=== PATIENT | male | born 1935 | race Caucasian/White ===

== ENCOUNTER → 2016-11-21 | Outpatient (CLI) | payer OTHER ==
[~2016-11-21] MED LIST: APIX1TAB PO; ASPI81TA28 PO; ASTN; CARV12.5 PO; FINA5TAB PO; FURO-85 PO; IBUP-1050 PO; LISI-725 PO; NTRGSL/4 UT; ONGLYZA PO; PRAS1TAB6 PO; PRD/1 PO; PRLSR20 PO; SAXA1TAB64 PO; SIMV40TA2 PO; SPIR25TA PO; TAMS0.4C38 PO; TRAM-10 PO
[2016-11-21 12:20] LABS: HEMATOCRIT 39.3 % (42-52); MEAN CELL VOLUME 97.3 fL (80-100); MEAN CORPUSCULAR HEMOGLOBIN 32.9 pg (25-34); MEAN CORPUSCULAR HGB CONC 33.8 g/dl (32-36); MEAN PLATELET VOLUME 11.1 fL (7.4-10.4); PLATELET COUNT 168 K/uL (130-400); RED BLOOD COUNT 4.04 M/uL (4.7-6.1); WHITE BLOOD COUNT 7.22 K/uL (4.8-10.8)
[2016-11-21 12:33] LABS: BLOOD UREA NITROGEN 56 mg/dl (7-18); BUN/CREATININE RATIO 31.2 (10-20); CALCIUM 9.1 mg/dl (8.5-10.1); CARBON DIOXIDE 23 mmol/L (21-32); CHLORIDE 106 mmol/L (98-107); GLUCOSE 117 mg/dl (70-99); PHOSPHORUS 3.4 mg/dl (2.5-4.9); POTASSIUM 4.5 mmol/L (3.5-5.1); SODIUM 139 mmol/L (136-145)
== END | disposition home or self-care (01) ==
LOC: C.LABBFT 08:23
PROVIDERS: ATTEND Internal Medicine Nephrology
DX: R31.9 Hematuria, unspecified (principal); N18.3 Chronic kidney disease, stage 3 (moderate); D64.9 Anemia, unspecified; E61.1 Iron deficiency

== ENCOUNTER → 2017-03-07 | Outpatient (CLI) | payer OTHER ==
--- NOTE | 2017-03-07 09:34 | DIAGNOSTIC IMAGING REPORT ---
CHEST 2 VIEWS ROUTINE CLINICAL HISTORY: R06.02 Shortness of [id number] dyspnea COMPARISON STUDY: 11/05/2015 FINDINGS: Moderate cardiomegaly. Permanent bipolar cardiac pacemaker. Mild atelectatic change left base considered chronic. Lungs otherwise appear clear. Several old right-sided rib fractures. IMPRESSION: Chronic and postoperative change. No acute process. Electronically signed by: Amol Crain M.D. 03/07/2017 9:33 AM Dictated Date/Time: 03/07/2017 9:31 AM
[2017-03-07 10:29] LABS: BLOOD UREA NITROGEN 76 mg/dl (7-18); BUN/CREATININE RATIO 34.4 (10-20); CALCIUM 8.9 mg/dl (8.5-10.1); CARBON DIOXIDE 20 mmol/L (21-32); CHLORIDE 113 mmol/L (98-107); GLUCOSE 130 mg/dl (70-99); SODIUM 141 mmol/L (136-145)
[2017-03-07 11:36] LABS: ESTIMATED AVERAGE GLUCOSE 157 mg/dl; HA1C FLAG Normal (Normal)
== END | disposition home or self-care (01) ==
LOC: C.RAD1850 09:14
PROVIDERS: ATTEND Nurse Practitioner
DX: R06.02 Shortness of breath (principal); E11.29 Type 2 diabetes mellitus with other diabetic kidney complication

== ENCOUNTER → 2017-03-14 | Outpatient (CLI) | payer OTHER ==
[2017-03-14 12:57] LABS: BLOOD UREA NITROGEN 58 mg/dl (7-18); BUN/CREATININE RATIO 26.5 (10-20); CALCIUM 8.8 mg/dl (8.5-10.1); CARBON DIOXIDE 17 mmol/L (21-32); CHLORIDE 113 mmol/L (98-107); GLUCOSE 125 mg/dl (70-99); POTASSIUM 4.3 mmol/L (3.5-5.1); SODIUM 140 mmol/L (136-145)
== END | disposition home or self-care (01) ==
LOC: C.LABBFT 08:04
PROVIDERS: ATTEND Nurse Practitioner
DX: N18.3 Chronic kidney disease, stage 3 (moderate) (principal)

== ENCOUNTER → 2017-04-16 | Outpatient (CLI) | payer OTHER ==
[2017-04-16 13:30] LABS: BLOOD UREA NITROGEN 19 mg/dl (7-18); BUN/CREATININE RATIO 14.3 (10-20); CALCIUM 8.6 mg/dl (8.5-10.1); CARBON DIOXIDE 27 mmol/L (21-32); CHLORIDE 112 mmol/L (98-107); GLUCOSE 134 mg/dl (70-99); POTASSIUM 3.7 mmol/L (3.5-5.1); SODIUM 146 mmol/L (136-145)
== END | disposition home or self-care (01) ==
LOC: C.LABBFT 08:44
PROVIDERS: ATTEND Nurse Practitioner
DX: N18.3 Chronic kidney disease, stage 3 (moderate) (principal)

== ENCOUNTER 2017-04-17 15:33 | Observation (INO) | payer OTHER ==
[~2017-04-17] VITALS: Ht 179.1 cm; Wt 90.2 kg
[~2017-04-17 15:33] MED LIST changes: -NTRGSL/4 UT; -ONGLYZA PO; -PRD/1 PO
[2017-04-17] MEDS ORDERED: SODIUM CHLORIDE 0.9% 1000ML 1,000 ML IV STA (15:59)
[2017-04-17] MEDS ORDERED: PRAS1TAB6 PO (16:13)
[2017-04-17] MEDS ORDERED: ONGLYZA PO (16:13)
[2017-04-17] MEDS ORDERED: PRD/1 PO (16:13)
[2017-04-17 16:33] LABS: BASO % 0.9 %; BASO ABS # 0.05 K/uL (0-0.2); COMPLETE YES; HEMATOCRIT 35.8 % (42-52); IG% 1.3 %; LYMPH % 18.6 %; LYMPH ABS # 1.01 K/uL (1.2-3.4); MEAN CELL VOLUME 97.5 fL (80-100); MEAN CORPUSCULAR HEMOGLOBIN 32.4 pg (25-34); MEAN CORPUSCULAR HGB CONC 33.2 g/dl (32-36); MONO % 9.9 %; NEUT % 67.3 %; PLATELET COUNT 167 K/uL (130-400); RED BLOOD COUNT 3.67 M/uL (4.7-6.1); WHITE BLOOD COUNT 5.43 K/uL (4.8-10.8)
[2017-04-17 16:41] LABS: INR 1.1 (0.9-1.1); PARTIAL THROMBOPLASTIN RATIO 1.1; PROTHROMBIN TIME (PATIENT) 11.8 SECONDS (9.0-12.0)
[2017-04-17 16:51] LABS: ALT/SGPT 19 U/L (12-78); AST/SGOT 12 U/L (15-37); BLOOD UREA NITROGEN 19 mg/dl (7-18); BUN/CREATININE RATIO 15.6 (10-20); CALCIUM 8.5 mg/dl (8.5-10.1); CARBON DIOXIDE 25 mmol/L (21-32); CHLORIDE 113 mmol/L (98-107); GLUCOSE 127 mg/dl (70-99); POTASSIUM 3.7 mmol/L (3.5-5.1); SODIUM 145 mmol/L (136-145)
[2017-04-17 16:54] LABS: ALKALINE PHOSPHATASE 64 U/L (45-117)
[2017-04-17] MEDS ORDERED: NTRGSL/4 UT (18:22)
[2017-04-17] MEDS ORDERED: DEXTROSE 50% 50 ML SYR IV PRN (18:45)
[2017-04-17] MEDS ORDERED: ALUMINUM/MAGNESIUM/SIMETH (MAALOX MAX) 30 ML UDC PO PRN (18:45)
[2017-04-17] MEDS ORDERED: ONDANSETRON INJ 2 MG/ML 2 ML VIAL IV PRN (18:45)
[2017-04-17] MEDS ORDERED: MAGNESIUM HYDROXIDE SUSP 30 ML UDC PO PRN (18:45)
[2017-04-17] MEDS ORDERED: GLUCAGON FOR INJ 1 MG VIAL SQ PRN (18:45)
[2017-04-17] MEDS ORDERED: POLYETHYLENE (MIRALAX) 17 GM PACK PO PRN (18:45)
[2017-04-17] MEDS ORDERED: GLUCOSE 40% GEL 15 GM TUBE PO PRN (18:45)
[2017-04-17] MEDS ORDERED: ACETAMINOPHEN 325 MG TAB PO PRN (18:45)
[2017-04-17] MEDS ORDERED: GLUCOSE 10 TABS/TUBE PO PRN (18:45)
[2017-04-17 19:08] VITALS: Ht 179.1 cm; Wt 90.2 kg
--- NOTE | 2017-04-17 19:20 | DIAGNOSTIC IMAGING REPORT ---
CHEST ONE VIEW PORTABLE CLINICAL HISTORY: Shortness of breath COMPARISON STUDY: 03/07/2017 FINDINGS: The heart is enlarged. There is a left subclavian pacer/defibrillator present. There is mild central pulmonary vascular congestion. There is no lobar consolidation. There are old right-sided rib deformities. Mild indistinctness of the left cardiophrenic angle, likely secondary to a fat pad and atelectatic change.[ IMPRESSION: Cardiomegaly and mild central pulmonary vascular congestion. No evidence of lobar consolidation Electronically signed by: Jimbo Monsalve M.D. 04/17/2017 7:18 PM Dictated Date/Time: 04/17/2017 7:18 PM
--- NOTE | 2017-04-17 19:25 | History and Physical ---
History & Physical Date & Time of Service: Apr 17, 2017 at 18:55 Chief Complaint: Blood In Stool Primary Care Physician: Bee Johnson C.RPbNPbPPb History of Present Illness Source: patient, family (daughter at bedside), clinic records, hospital records This is an 81 y/o male with a history of CAD, h/o multiple [place] s/p stents (11 total), biventricular ICD, a-fib, HTN, HLD, DM II, CKD stage III, anemia of chronic disease, BPH, osteoarthritis and GERD who presented to the ED on 04/17 with rectal bleeding. He is on chronic anticoagulation. The patient states that he began to experience bright red blood per rectum a few hours prior to arrival. He said that this only occurs while having a bowel movement, which he describes as loose. He admits to having several bloody bowel movements today , and he states that the bleeding seems to be improving. He admits to shortness of breath, but states that this has been chronic over the last few months and is not currently any worse than his usual. He denies any chest pain , lightheadedness, loss of consciousness, or palpitations. Per the patient's daughter, he does not appear any paler than usual. The patient denies fevers, chills, sweats, chest pain, palpitations, claudication, cough, wheezing, shortness of breath, nausea, vomiting, abdominal pain, dysuria, hematuria, urinary retention, paralysis, weakness, numbness and tingling. Past Medical/Surgical History Medical Problems: (1) Atherosclerosis of coronary artery of [place] heart Status: Chronic (2) Atrial fibrillation Status: Chronic (3) Benign hypertension Status: Chronic (4) Hx of myocardial infarction Status: Chronic (5) Hyperlipidemia Status: Chronic (6) ICD (implantable cardioverter-defibrillator) in place Status: Chronic (7) Pacemaker Status: Chronic DM II CKD stage III Anemia of chronic disease BPH Osteoarthritis GERD Surgical Problems: (1) Stented coronary artery Status: Chronic Family History Diabetes mellitus Heart disease Hypertension Mesothelioma Myocardial infarction Social History Smoking Status: Never Smoker Smokeless Tobacco Use: No Alcohol Use: occasionally (beer) Drug Use: none Marital Status: Housing status: lives alone Occupational Status: retired Allergies Coded Allergies: Latex2 -Systemic Allergic Response (Verified Allergy, Severe, swelling and itching, 04/06/16) has an epi pen BEE STING (Verified Allergy, Unknown, ., 04/06/16) Procaine (Verified Adverse Reaction, Mild, DIZZY, 04/06/16) Home Medications Scheduled Apixaban (Eliquis), 2.5 MG PO BID Aspirin (Aspirin Ec), 81 MG PO QAM Azelastine Hcl (Astelin Nasal [place]), 1-2 SPRAYS NA BID Carvedilol (Coreg), 12.5 MG PO BID Finasteride (Proscar), 5 MG PO DAILY Furosemide (Lasix), 20 MG PO DAILY Lisinopril (Zestril), 20 MG PO DAILY Omeprazole (Prilosec), 20 MG PO DAILY Prasugrel Hcl (Effient), 10 MG PO DAILY Prednisone (Prednisone), 3 MG PO DAILY Simvastatin (Zocor), 40 MG PO QAM Spironolactone (Aldactone), 25 MG PO DAILY Tamsulosin Hcl (Flomax), 0.4 MG PO QAM [Onglyza], 5 MG PO DAILY Scheduled PRN Nitroglycerin (Nitrostat), 0.4 MG UT UD PRN for Chest Pain Review of Systems Constitutional: No fever, No chills, No sweats, No weakness, No fatigue Eyes: No worsening of vision, No eye pain, No diplopia ENT: No hearing loss, No sore throat, No trouble swallowing Respiratory: + shortness of breath (chronic, no worse than usual), No cough, No wheezing Cardiovascular: No chest pain, No claudication, No palpitations Abdomen: + GI bleeding, No pain, No nausea, No vomiting Musculoskeletal: No joint pain, No muscle pain, No calf pain Genitourinary - Male: No hematuria, No dysuria, No urinary retention Neurologic: No paralysis, No weakness, No numbness/tingling Integumentary: No rash, No itch, No color change Physical Exam Vital Signs Date Time Temp Pulse Resp B/P (MAP) Pulse Ox O2 Delivery O2 Flow Rate FiO2 04/17/17 18:46 65 20 144/87 94 Room Air 04/17/17 18:43 63 19 04/17/17 18:13 91 17 04/17/17 18:08 67 21 04/17/17 18:03 76 16 04/17/17 17:58 61 20 04/17/17 17:53 72 16 161/70 04/17/17 17:48 60 24 04/17/17 17:43 60 15 04/17/17 17:38 60 21 04/17/17 17:33 61 13 04/17/17 17:28 77 19 04/17/17 17:23 67 21 04/17/17 17:18 60 14 04/17/17 17:13 60 14 04/17/17 17:08 62 22 04/17/17 17:03 61 20 04/17/17 16:58 64 20 04/17/17 16:53 68 22 04/17/17 16:48 63 26 04/17/17 16:43 59 21 04/17/17 16:38 62 16 04/17/17 16:33 65 16 04/17/17 16:28 60 20 04/17/17 16:26 58 04/17/17 16:06 95 Room Air 04/17/17 15:40 36.4 89 16 160/88 95 Room Air General appearance: Well-developed, well-nourished, no apparent distress Head: Normocephalic, atraumatic Eyes: Normal inspection, PERRL, EOMI ENT: Normal ENT inspection, hearing grossly normal, pharynx normal Neck: Supple, no JVD, trachea midline Respiratory/Chest: +Decreased breath sounds in bases bilaterally. Lungs clear to auscultation, normal breath sounds, no respiratory distress Cardiovascular: Regular rate & rhythm, no gallop, no murmur Abdomen/GI: Normal bowel sounds, non-tender, soft Extremities/Musculoskeletal: +Chronic venous stasis changes. 2+ pitting edema. No calf tenderness Neurological/Psych: Alert, normal mood/affect, oriented x 3 Skin: Normal color, warm/dry, no rash Diagnostics Laboratory Results Results Past 24 Hours Test 04/17/17 16:20 04/17/17 18:33 Range/Units White Blood Count 5.43 4.8-10.8 K/uL Red Blood Count 3.67 4.7-6.1 M/uL Hemoglobin 11.9 14.0-18.0 g/dL Hematocrit 35.8 42-52 % Mean Corpuscular Volume 97.5 80-100 fL Mean Corpuscular Hemoglobin 32.4 25-34 pg Mean Corpuscular Hemoglobin Concent 33.2 32-36 g/dl Platelet Count 167 130-400 K/uL Mean Platelet Volume 10.0 7.4-10.4 fL Neutrophils (%) (Auto) 67.3 % Lymphocytes (%) (Auto) 18.6 % Monocytes (%) (Auto) 9.9 % Eosinophils (%) (Auto) 2.0 % Basophils (%) (Auto) 0.9 % Neutrophils # (Auto) 3.65 1.4-6.5 K/uL Lymphocytes # (Auto) 1.01 1.2-3.4 K/uL Monocytes # (Auto) 0.54 0.11-0.59 K/uL Eosinophils # (Auto) 0.11 0-0.5 K/uL Basophils # (Auto) 0.05 0-0.2 K/uL RDW Standard Deviation 49.3 36.4-46.3 fL RDW Coefficient of Variation 13.9 11.5-14.5 % Immature Granulocyte % (Auto) 1.3 % Immature Granulocyte # (Auto) 0.07 0.00-0.02 K/uL Prothrombin Time 11.8 9.0-12.0 SECONDS Prothromb Time International Ratio 1.1 0.9-1.1 Activated Partial Thromboplast Time 28.7 21.0-31.0 SECONDS Partial Thromboplastin Ratio 1.1 Sodium Level 145 136-145 mmol/L Potassium Level 3.7 3.5-5.1 mmol/L Chloride Level 113 98-107 mmol/L Carbon Dioxide Level 25 21-32 mmol/L Anion Gap 7.0 3-11 mmol/L Blood Urea Nitrogen 19 7-18 mg/dl Creatinine 1.20 0.60-1.40 mg/dl Est Creatinine Clear Calc Drug Dose 55.4 ml/min Estimated GFR () 65.3 Estimated GFR (Non- 56.4 BUN/Creatinine Ratio 15.6 10-20 Random Glucose 127 70-99 mg/dl Calcium Level 8.5 8.5-10.1 mg/dl Total Bilirubin 0.7 0.2-1 mg/dl Direct Bilirubin 0.2 0-0.2 mg/dl Aspartate Amino Transf (AST/SGOT) 12 15-37 U/L Alanine Aminotransferase (ALT/SGPT) 19 12-78 U/L Alkaline Phosphatase 64 45-117 U/L Total Protein 6.4 6.4-8.2 gm/dl Albumin 3.4 3.4-5.0 gm/dl Lipase 114 73-393 U/L Creatine Kinase MB Ratio 0-3.0 EKG Reviewed EKG and agree with interpretation as follows: 63 bpm, ventricular paced rhythm Impression Assessment and Plan 81 y/o male with a history of CAD, h/o multiple [place] s/p stents (11 total), biventricular ICD, a-fib, HTN, HLD, DM II, CKD stage III, anemia of chronic disease, BPH, osteoarthritis and GERD who presented to the ED on 04/17 with rectal bleeding. Pt afebrile, VSS on arrival to the ED. EKG shows no ischemic changes. Hgb is 11.9 on admission. Labs otherwise grossly unremarkable. Rectal bleeding, h/o anemia of chronic disease--baseline hgb 13 -Admit to telemetry for observation -Consult GI, appreciate recs: spoke to Dr. Alatorre. Will give pt bowel prep tonight for possible add-on colonoscopy tomorrow. Also spoke with anesthesia, and pt seems likely an acceptable risk for sedation -Golytely ordered, NPO after midnight -NSS at 125 cc/hr -Obtain cardiac enzymes x 1 set -No need for blood transfusion currently, but continue to monitor. Transfuse prn if Hgb less than 10 due to cardiac history -Hgb 11.9 on admission, not severely decreased from baseline. Will recheck with morning labs -Will obtain CXR as pt very diminished in bases and has chronic SOB CAD, h/o [place] s/p stents, ICD, a-fib, HTN, HLD--stable, in ventricular paced rhythm with controlled HR and BP -Hold ASA, Effient, and Eliquis -Continue Coreg 12.5 mg PO BID and Zocor 40 mg PO qd -Hold lisinopril, Lasix and Aldactone DM II--last HgbA1c checked 03/07/17 was 7.1 -Hold Onglyza -Insulin sliding scale -Check BSGs q ac and qhs CKD stage III--baseline creatinine 1.2-1.4 -Creatinine 1.2 on admission -Continue to monitor BPH -Continue Proscar 5 mg PO qd and Flomax 0.4 mg PO qd Osteoarthritis -Continue Prednisone 3 mg PO qd GERD -Prilosec converted to Protonix 40 mg PO qd DVT prophylaxis -Hold chemical prophylaxis and home blood thinners -ASHLEY martines and SCDs Code Status -Level I, FULL RESUSCITATION STATUS Resident Physician Supervision Note: I was present with Tere HARP during the history and exam. I discussed the case with the PA and agree with the findings and plan as documented in the note. Any exceptions or clarifications are listed here: 81 y/o M Hx CAD, AF, pacer/defib - states 5 previous MIs and 11 stents - presents with BRBPR throughout day - Hb has dropped > 1 pt - pt otherwise stable OE AAO x 3 S1,2 R +M CTAB NT, ND No CCE No deficits P: Considering his underlying Hx it is felt that a further drop in his Hb may be detrimental form a cardiac standpoint - pt will therefore likely proceed to a colonoscopy - we have discussed this with GI and he will be prepd No current evidence of active ACS or additional cardio issues Above discussed with pt, family and ER attending Documented By: Neftali Traore Level of Care Telemetry Resuscitation Status FULL RESUSCITATION VTE Prophylaxis VTE Risk Assessment Done? Y/N: Yes Risk Level: Moderate Given or contraindicated: T.E.D. Stockings, SCD's
[2017-04-17 19:31] LABS: CKMB/CK RATIO 3.9 (0-3.0)
--- NOTE | 2017-04-17 19:45 | Anesthesiology Progress Note ---
Anesthesia Progress Note Date of Service Apr 17, 2017. Progress Notes The patient is an 81 y/o male is scheduled for a colonoscopy tomorrow due to blood in his stool. He came to the ER tonight after noting blood in the toilet. The patient has no chest pain or SOB. His PMH is significant for CAD with MD x5 and 11 cardiac stents (the last one was two years ago), HTN, CHF, afib, pacemaker/AICD (patient is V paced, last checked in July [address] Bates), arthritis, Type 2 DM, and BPH. His CXR shows cardiomegaly with mild pulmonary congestion. His EKG shows Vpaced rate 63. Labs are significant for hgb 11.9. Electrolytes and coags are normal. His troponin is pending. His vital signs are stable. On exam the patient is a MP 2 with 3 FB TMD. His teeth are intact but in poor condition with an upper teeth brace. Lung sounds are diminished bilaterally at the bases. Heart is RRR. Carotids are negative for bruits. The patient will have his bowel prep tonight or tomorrow as ordered by the medicine team. He was consented to MAC sedation with GA as a backup.
--- NOTE | 2017-04-17 19:47 | EMERGENCY ROOM VISIT NOTE ---
History Report prepared by Jose Antonio: Adriana Bhatt Under the Supervision of: Dr. Tl Francis M.D. First contact with patient: 15:58 Chief Complaint: RECTAL BLEEDING Stated Complaint: BLOOD IN STOOL History of Present Illness The patient is a 81 year old male who presents to the Emergency Room with complaints of intermittent rectal bleeding beginning 3 hours ago. The patient states that he began has had 5 episodes of bleeding since it began this afternoon. He reports that the blood is bright red and comes with bowel movements. The patient states that he has never had these symptoms before and notes that he is on a blood thinner. He reports that he has a pacemaker and has a history of 11 cardiac stents. He complains of some shortness of breath. Pt denies rectal pain, lightheadedness, LOC, headache, fevers, chills, diaphoresis , visual changes, neck pain, chest pain, nausea, vomiting, abdominal pain, back pain, melena, hematochezia, urinary symptoms, numbness, weakness, lymphadenopathy, rash, or other complaints. Source of History: patient Onset: 3 hours ago Position: other (rectal) Symptom Intensity: 5 episodes Quality: other (bright red bleeding) Timing: intermittent Associated Symptoms: + SOB Review of Systems See HPI for pertinent positives and negatives. A total of ten systems were reviewed and were otherwise negative. Past Medical & Surgical Medical Problems: (1) Atherosclerosis of coronary artery of [place] heart (2) Atrial fibrillation (3) Benign hypertension (4) Hx of myocardial infarction (5) Hyperlipidemia (6) ICD (implantable cardioverter-defibrillator) in place (7) Pacemaker (8) Rectal bleed Surgical Problems: (1) Stented coronary artery Family History Diabetes mellitus Heart disease Hypertension Social History Smoking Status: Never Smoker Alcohol Use: occasionally Drug Use: none Marital Status: Housing Status: lives with family Occupation Status: retired Current/Historical Medications Scheduled Apixaban (Eliquis), 2.5 MG PO BID Aspirin (Aspirin Ec), 81 MG PO QAM Azelastine Hcl (Astelin Nasal [place]), 1-2 SPRAYS NA BID Carvedilol (Coreg), 12.5 MG PO BID Finasteride (Proscar), 5 MG PO DAILY Furosemide (Lasix), 20 MG PO DAILY Lisinopril (Zestril), 20 MG PO DAILY Omeprazole (Prilosec), 20 MG PO DAILY Prasugrel Hcl (Effient), 10 MG PO DAILY Prednisone (Prednisone), 3 MG PO DAILY Simvastatin (Zocor), 40 MG PO QAM Spironolactone (Aldactone), 25 MG PO DAILY Tamsulosin Hcl (Flomax), 0.4 MG PO QAM [Onglyza], 5 MG PO DAILY Scheduled PRN Nitroglycerin (Nitrostat), 0.4 MG UT UD PRN for Chest Pain Allergies Coded Allergies: Latex2 -Systemic Allergic Response (Verified Allergy, Severe, swelling and itching, 04/06/16) has an epi pen BEE STING (Verified Allergy, Unknown, ., 04/06/16) Procaine (Verified Adverse Reaction, Mild, DIZZY, 04/06/16) Physical Exam Vital Signs Date Time Temp Pulse Resp B/P (MAP) Pulse Ox O2 Delivery O2 Flow Rate FiO2 04/17/17 19:08 Room Air 04/17/17 18:46 65 20 144/87 94 Room Air 04/17/17 18:43 63 19 04/17/17 18:13 91 17 04/17/17 18:08 67 21 04/17/17 18:03 76 16 04/17/17 17:58 61 20 04/17/17 17:53 72 16 161/70 04/17/17 17:48 60 24 04/17/17 17:43 60 15 04/17/17 17:38 60 21 04/17/17 17:33 61 13 04/17/17 17:28 77 19 04/17/17 17:23 67 21 04/17/17 17:18 60 14 04/17/17 17:13 60 14 04/17/17 17:08 62 22 04/17/17 17:03 61 20 04/17/17 16:58 64 20 04/17/17 16:53 68 22 04/17/17 16:48 63 26 04/17/17 16:43 59 21 04/17/17 16:38 62 16 04/17/17 16:33 65 16 04/17/17 16:28 60 20 04/17/17 16:26 58 04/17/17 16:06 95 Room Air 04/17/17 15:40 36.4 89 16 160/88 95 Room Air Physical Exam GENERAL: Awake, alert, well-appearing, in no distress HENT: Normocephalic, atraumatic. Oropharynx unremarkable. EYES: Normal conjunctiva. Sclera non-icteric. NECK: Supple. No nuchal rigidity. FROM. No JVD. RESPIRATORY: Clear to auscultation. CARDIAC: Regular rate, normal rhythm. Extremities warm and well perfused. Pulses equal. ABDOMEN: Soft, non-distended. No tenderness to palpation. No rebound or guarding. No masses. RECTAL: Deferred. MUSCULOSKELETAL: Chest examination reveals no tenderness. The back is symmetrical on inspection without obvious abnormality. There is no CVA tenderness to palpation. No joint edema. LOWER EXTREMITIES: Calves are equal size bilaterally and non-tender. 2+ lower extremity edema. No discoloration. NEURO: Normal sensorium. No sensory or motor deficits noted. SKIN: No rash or jaundice noted. Chronic venous discoloration. RECTAL: Gross blood. Medical Decision & Procedures Laboratory Results 04/17/17 16:20 Red Blood Count 3.67, Mean Corpuscular Volume 97.5, Mean Corpuscular Hemoglobin 32.4, Mean Corpuscular Hemoglobin Concent 33.2, Mean Platelet Volume 10.0, Neutrophils (%) (Auto) 67.3, Lymphocytes (%) (Auto) 18.6, Monocytes (%) (Auto) 9.9, Eosinophils (%) (Auto) 2.0, Basophils (%) (Auto) 0.9, Neutrophils # (Auto) 3.65, Lymphocytes # (Auto) 1.01, Monocytes # (Auto) 0.54, Eosinophils # (Auto) 0.11, Basophils # (Auto) 0.05 04/17/17 16:20 Test 04/17/17 16:20 04/17/17 18:33 White Blood Count 5.43 K/uL (4.8-10.8) Red Blood Count 3.67 M/uL (4.7-6.1) Hemoglobin 11.9 g/dL (14.0-18.0) Hematocrit 35.8 % (42-52) Mean Corpuscular Volume 97.5 fL (80-100) Mean Corpuscular Hemoglobin 32.4 pg (25-34) Mean Corpuscular Hemoglobin Concent 33.2 g/dl (32-36) Platelet Count 167 K/uL (130-400) Mean Platelet Volume 10.0 fL (7.4-10.4) Neutrophils (%) (Auto) 67.3 % Lymphocytes (%) (Auto) 18.6 % Monocytes (%) (Auto) 9.9 % Eosinophils (%) (Auto) 2.0 % Basophils (%) (Auto) 0.9 % Neutrophils # (Auto) 3.65 K/uL (1.4-6.5) Lymphocytes # (Auto) 1.01 K/uL (1.2-3.4) Monocytes # (Auto) 0.54 K/uL (0.11-0.59) Eosinophils # (Auto) 0.11 K/uL (0-0.5) Basophils # (Auto) 0.05 K/uL (0-0.2) RDW Standard Deviation 49.3 fL (36.4-46.3) RDW Coefficient of Variation 13.9 % (11.5-14.5) Immature Granulocyte % (Auto) 1.3 % Immature Granulocyte # (Auto) 0.07 K/uL (0.00-0.02) Prothrombin Time 11.8 SECONDS (9.0-12.0) Prothromb Time International Ratio 1.1 (0.9-1.1) Activated Partial Thromboplast Time 28.7 SECONDS (21.0-31.0) Partial Thromboplastin Ratio 1.1 Anion Gap 7.0 mmol/L (3-11) Est Creatinine Clear Calc Drug Dose 55.4 ml/min Estimated GFR () 65.3 Estimated GFR (Non- 56.4 BUN/Creatinine Ratio 15.6 (10-20) Calcium Level 8.5 mg/dl (8.5-10.1) Total Bilirubin 0.7 mg/dl (0.2-1) Direct Bilirubin 0.2 mg/dl (0-0.2) Aspartate Amino Transf (AST/SGOT) 12 U/L (15-37) Alanine Aminotransferase (ALT/SGPT) 19 U/L (12-78) Alkaline Phosphatase 64 U/L (45-117) Total Creatine Kinase 57 U/L (39-308) Creatine Kinase MB 2.2 ng/ml (0.5-3.6) Troponin I < 0.015 ng/ml (0-0.045) Total Protein 6.4 gm/dl (6.4-8.2) Albumin 3.4 gm/dl (3.4-5.0) Lipase 114 U/L (73-393) Creatine Kinase MB Ratio (0-3.0) Laboratory results reviewed by me Medications Administered Medications (Trade) Dose Ordered Sig/Carrol Route Start Time Stop Time Status Last Admin Dose Admin Sodium Chloride 1,000 ml @ 125 mls/hr Q8H STAT IV 04/17/17 15:59 04/17/17 23:58 04/17/17 17:00 125 MLS/HR ECG Indication: other (bleeding) Rate (beats per minute): 63 Rhythm: other (paced) Findings: no acute ischemic change, no ectopy ED Course 1558: The patient was evaluated in room B2. A complete history and physical exam was performed. 1559: Sodium Chloride 1000 ml @ 125 mls/hr IV. 1747: I reevaluated and updated the patient. 181: Discussed the patient's case with Dr. Traore [place] [facility] The patient will be evaluated for further treatment and disposition. 1827: Upon reexamination, the patient was doing well. I discussed the test results and treatment plan with the patient. The patient will be evaluated for further management. Medical Decision Prior records/ancillary studies reviewed. Triage Nursing notes reviewed and agree them. The patient's history was concerning for possible gastrointestinal bleeding. Differential diagnosis: Etiologies such as diverticulosis, AVM, coagulopathy, colitis, inflammatory bowel disease, malignancy,Stephanie-Sampson tear, esophagitis, peptic ulcer disease , variceal bleed, gastritis, epistaxis, fissure, hemorrhoids, as well as others were entertained. Physical exam: As above. ER treatment provided: IV hydration with normal saline On reassessment the patient felt better. Diagnostics interpreted by me: ECG: Paced rhythm The labs revealed a slight anemia on CBC. Chemistry panel unremarkable. Imaging studies: Chest x-ray as above The patient is on anticoagulation and has had 5 bloody bowel movements today. He will need further evaluation in the hospital. Consultation: A consultation was placed with the hospitalist. The case was discussed and diagnostics were reviewed. The patient was evaluated in the ER for further treatment. Medication Reconcilliation Current Medication List: was personally reviewed by me Blood Pressure Screening Patient's blood pressure: Elevated blood pressure Blood pressure disposition: Elevated BP felt to be situational Consults Time Called: 1805 Consulting Physician: Dr. Traore - [facility] Returned Call: 1811 Discussed the patient's case with Dr. Traore of [facility]. The patient will be evaluated for further treatment and disposition. Impression Primary Impression: GI bleed Additional Impression: Chronic anticoagulation Scribe Attestation The scribe's documentation has been prepared under my direction and personally reviewed by me in its entirety. I confirm that the note above accurately reflects all work, treatment, procedures, and medical decision making performed by me. Departure Information Dispostion Being Evaluated By Hospitalist Referrals No Doctor, Assigned (PCP) Patient Instructions My [facility] Problem Qualifiers
[2017-04-17 20:06] VITALS: BP 168/86; PULSE 86; TEMP 36.3; O2SAT 96
[2017-04-17] MEDS ORDERED: IV FLUIDS COMPLETED PRN (20:30)
[2017-04-17] MEDS ORDERED: LAVAGE SOLUTION 4000ML PO SCH (21:00)
[2017-04-17] MEDS: NSS + 20MEQ KCL 1000ML 1,000 ML IV SCH (21:14)
[2017-04-17] MEDS: CARVEDILOL 12.5 MG TAB PO SCH (21:16)
[2017-04-18] VITALS (8 sets, daily range): BP systolic 135–165; BP diastolic 69–85; PULSE 63–77; TEMP 36.3–36.7; O2SAT 95–98
--- NOTE | 2017-04-18 00:42 | GASTROINTESTINAL CONSULTATION ---
DATE OF CONSULTATION: 04/17/2017 CHIEF COMPLAINT: Hematochezia. REQUESTING PROVIDER: Dr. Estela Wei. HISTORY OF PRESENT ILLNESS: Mr. Cedillo is an 81-year-old white male, who has an extensive cardiac history, including atherosclerotic coronary artery disease with [address], an internal defibrillator, on multiple anticoagulation agents, including Eliquis, aspirin and Effient (Prasugrel). The patient has had prior colonoscopies in the past, last one in [place] approximately 5 years ago. (The patient recently relocated, approximately 2 years ago, back to his home town). The patient had an episode of painless rectal bleeding, which occurred this morning. The patient had no abdominal pain associated with this. The patient does use occasional ibuprofen for joint aches. The patient denies any recent diarrhea, straining, change in stool caliber and has not had any episodes of prior bleeding in the past. 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 PAST MEDICAL HISTORY: Extensive and includes atherosclerotic coronary artery disease, atrial fibrillation, benign hypertension, OR, hyperlipidemia, ICD placement, pacemaker placement, chronic kidney disease, type 2 diabetes, BPH and GERD. He has had interventional cardiology for stent placements. FAMILY HISTORY: Significant for diabetes, coronary artery disease, a history of mesothelioma and hypertension. SOCIAL HISTORY: The patient denies tobacco usage, occasionally drinks a beer, is , lives alone, but is retired. ALLERGIES: HE IS ALLERGIC TO LATEX, BEE STINGS AND PROCAINE. His p.r.n. medications include nitroglycerin. He did have some mild chest discomfort and shortness of breath a few weeks ago and saw his primary care provider that. This has not returned. REVIEW OF SYSTEMS: Otherwise noncontributory based on 13-point exam, except for mentioned above. PHYSICAL EXAMINATION: VITAL SIGNS: On admission this evening, blood pressure 160/88, 95% on room air, 89 heart rate, afebrile at 36.4. At 7:00 p.m., blood pressure 144/87, pulse ox 94% on room air, 65 heart rate, respirations 20. GENERAL: The patient is awake, alert and oriented x3. HEENT: Sclerae are anicteric, conjunctiva moist. Oral mucosa moist. Normal range of motion with extremities. There are no focal neurologic defects. Skin is dry and intact. HEART: Normal S1, S2. LUNGS: Clear to auscultation without rales, rhonchi or wheezes. ABDOMEN: Soft, nontender, nondistended with normal bowel sounds. There is no rebound or guarding. I do not appreciate hepatosplenomegaly. EXTREMITIES: Without clubbing, cyanosis or edema. RECTAL: Exam is deferred at this time. LABORATORY STUDIES: Admission labs, white count 5.4, hemoglobin 11.9, MCV 97, platelets 167,000. INR 1.1, PTT 28.7. Potassium 3.7, BUN and creatinine 19 and 1.2 Total bilirubin 0.7, direct bilirubin 0.2. Calcium 8.5. AST 12, ALT 19, alkaline phosphatase 64, albumin 3.4, lipase 114. EKG showed a paced rhythm at a rate of 63 beats per minute. IMPRESSION AND PLAN: The patient with a history of painless rectal bleeding of 1 day duration. He has had prior colonoscopies, the last about 5 years ago, which he believes may have had small polyps removed. He had one other colonoscopy prior to that, also 5-10 years ago, prior to the last one, which also may have had polyps. There is a family history, with his mother, of colorectal cancer that he said was "throughout the colon and body". From a cardiopulmonary standpoint, the patient is doing well without any decompensation with satisfactory vital signs and oxygenation. I believe it is reasonable to perform a colonoscopy. This will require a bowel prep this evening and this is currently in progress. Additionally, because of his use of ibuprofen and possibly Aleve at home for his joint aches, an upper endoscopy may be prudent and we will decide this at that time, if colonoscopy does not yield an obvious source. However, this is unlikely, given the normal BUN and initial color of the stool that the patient described. We would continue other current medications, n.p.o. after midnight, except for meds, and hold all anticoagulants, as possible, during the opal-procedural timeframe. All questions answered. Thank you for allowing me to participate in this patient's care.
[2017-04-18] MEDS: NSS + 20MEQ KCL 1000ML 1,000 ML IV SCH ×3 (04:34→20:56)
[2017-04-18] MEDS: INSULIN ASPART 100 UNITS/ML 3 ML PEN SC SCH ×5 (06:00→21:00)
[2017-04-18 07:37] LABS: HEMATOCRIT 33.5 % (42-52); MEAN CELL VOLUME 99.1 fL (80-100); MEAN CORPUSCULAR HGB CONC 32.2 g/dl (32-36); MEAN PLATELET VOLUME 9.9 fL (7.4-10.4); PLATELET COUNT 158 K/uL (130-400); RED BLOOD COUNT 3.38 M/uL (4.7-6.1); WHITE BLOOD COUNT 5.42 K/uL (4.8-10.8)
[2017-04-18] MEDS: CARVEDILOL 12.5 MG TAB PO SCH ×2 (07:48→20:56)
[2017-04-18] MEDS: FINASTERIDE 5 MG TAB PO SCH (07:48)
[2017-04-18] MEDS: TAMSULOSIN HCL 0.4 MG CAP PO SCH (07:48)
[2017-04-18] MEDS: PANTOprazole SOD 40 MG TAB PO SCH (07:48)
[2017-04-18] MEDS: SIMVASTATIN 40 MG TAB PO SCH (07:48)
[2017-04-18 08:02] LABS: BUN/CREATININE RATIO 14.1 (10-20); CREATININE 1.1 mg/dl (0.60-1.40); POTASSIUM 3.8 mmol/L (3.5-5.1)
[2017-04-18] MEDS ORDERED: LIDOCAINE HCL 2% 2 ML VIAL (20MG/ML) ONE (11:53)
[2017-04-18] MEDS ORDERED: ETOMIDATE 2 MG/ML 20 ML VIAL IV ONE (11:53)
[2017-04-18] MEDS ORDERED: PROPOFOL IV EMULSION 10 MG/ML 20 ML VIAL IV ONE (11:53)
--- NOTE | 2017-04-18 11:57 | History & Physical Bridge Note ---
H&P Re-Evaluation Bridge Note: I have examined the patient, reviewed the History & Physical and in the interval since the performance of the History & Physical I have noted the following changes of clinical significance: No changes noted for colonoscopy +/- EGD cary
--- NOTE | 2017-04-18 12:45 | Hospitalist Progress Note ---
Hospitalist Progress Note Date of Service Apr 18, 2017. Subjective Pt evaluation today including: conversation w/ patient, conversation w/ family , physical exam, chart review, lab review, review of studies, conversation w/ senior management consultant (Dr. Alatorre), review of inpatient medication list Pain: 0 PO Intake: NPO for Colonoscopy Voiding: no voiding problems Patient seen and evaluated. Tele reviewed with paced sinus rhythm with intermittent flutter that is rate controlled. Hemoglobin is stable at 10.8. Vitals are stable. Continues to have BRBPR with some possible melanotic stool. Plan for colonoscopy today with possible upper however low suspicion for upper GI bleed - is on Eliquis, ASA, Effient, Prednisone, and utilizes OTC NSAIDs He verbalizes no complaints today. Reports chronic GARCIA without worsening symptoms. Does report that he occ. gets bilateral lower extremity edema that he noticed was slightly worse over the past few days but seems to be resolving per patient account and the ASHLEY stockings are helping Constitutional: No fever, No chills ENT: No unusual epistaxis, No nasal symptoms, No trouble swallowing Respiratory: + dyspnea on exertion (chronic), No cough, No dyspnea at rest Cardiovascular: No chest pain, No palpitations Abdomen: + GI bleeding, No pain, No nausea, No vomiting, No diarrhea, No constipation Musculoskeletal: No swelling, No calf pain Male : No dysuria Medications Current Inpatient Medications Medications (Trade) Dose Ordered Sig/Carrol Route Start Time Stop Time Status Last Admin Dose Admin Potassium Chloride/Sodium Chloride 1,000 ml @ 125 mls/hr Q8H IV 04/17/17 21:00 05/17/17 20:59 04/18/17 04:34 125 MLS/HR Acetaminophen (Tylenol Tab) 650 mg Q4H PRN PO 04/17/17 18:45 05/17/17 18:44 Al Hydrox/Mg Hydrox/Simethicone (Maalox Max Susp) 15 ml Q4H PRN PO 04/17/17 18:45 05/17/17 18:44 Magnesium Hydroxide (Milk Of Magnesia Susp) 30 ml Q12H PRN PO 04/17/17 18:45 05/17/17 18:44 Ondansetron HCl (Zofran Inj) 4 mg Q6H PRN IV 04/17/17 18:45 05/17/17 18:44 Polyethylene (Miralax Powder Packet) 17 gm DAILY PRN PO 04/17/17 18:45 05/17/17 18:44 Glucose (Glucose 40% Gel) 15-30 GRAMS 15 GRAMS... UD PRN PO 04/17/17 18:45 05/17/17 18:44 Glucose (Glucose Chew Tab) 4-8 Tablets 4 Tabl... UD PRN PO 04/17/17 18:45 05/17/17 18:44 Dextrose (Dextrose 50% 50ML Syringe) 25-50ML OF 50% DW IV FOR... UD PRN IV 04/17/17 18:45 05/17/17 18:44 Glucagon (Glucagon Inj) 1 mg UD PRN SQ 04/17/17 18:45 05/17/17 18:44 Insulin Aspart (novoLOG ASPART) SLIDING SCALE G... Q6 SC 04/18/17 00:00 05/18/17 00:00 Carvedilol (Coreg Tab) 12.5 mg BID PO 04/17/17 21:00 05/17/17 20:59 04/18/17 07:48 12.5 MG Finasteride (Proscar Tab) 5 mg DAILY PO 04/18/17 09:00 05/18/17 08:59 04/18/17 07:48 5 MG Prednisone (PredniSONE TAB) 3 mg DAILY PO 04/18/17 09:00 05/18/17 08:59 04/18/17 07:48 3 MG Simvastatin (Zocor Tab) 40 mg QAM PO 04/18/17 09:00 05/18/17 08:59 04/18/17 07:48 40 MG Tamsulosin HCl (Flomax Cap) 0.4 mg QAM PO 04/18/17 09:00 05/18/17 08:59 04/18/17 07:48 0.4 MG Pantoprazole Sodium (Protonix Tab) 40 mg QAM PO 04/18/17 09:00 05/18/17 08:59 04/18/17 07:48 40 MG Miscellaneous (Iv Fluids Completed) 1 ea PRN PRN N/A 04/17/17 20:30 04/17/18 20:29 Objective Vital Signs Date Time Temp Pulse Resp B/P (MAP) Pulse Ox O2 Delivery O2 Flow Rate FiO2 04/18/17 11:40 36.5 76 20 155/83 (107) 97 Room Air 04/18/17 11:23 36.7 63 18 150/72 (98) 98 Room Air 04/18/17 08:00 Room Air 04/18/17 07:22 36.5 66 18 149/73 (98) 95 Room Air 04/18/17 05:16 36.4 66 21 135/82 95 Room Air 04/18/17 04:02 Room Air 04/18/17 03:41 36.4 66 21 135/82 (99) 95 Room Air 04/18/17 00:07 36.3 77 18 165/85 (111) 97 Room Air 04/18/17 00:01 Room Air 04/17/17 20:30 Room Air 04/17/17 20:06 36.3 86 18 168/86 (113) 96 Room Air 04/17/17 19:08 Room Air 04/17/17 18:46 65 20 144/87 94 Room Air 04/17/17 18:43 63 19 04/17/17 18:13 91 17 04/17/17 18:08 67 21 04/17/17 18:03 76 16 04/17/17 17:58 61 20 9/17 17:53 72 16 161/70 17 17:48 60 24 17 17:43 60 15 17 17:38 60 21 17 17:33 61 13 04/17/17 17:28 77 19 17 17:23 67 21 17 17:18 60 14 17 17:13 60 14 17 17:08 62 22 9/17 17:03 61 20 9/17 16:58 64 20 8/9/17 16:53 68 22 8/9/17 16:48 63 26 8/9/17 16:43 59 21 89/17 16:38 62 16 8/9/17 16:33 65 16 8/9/17 16:28 60 20 8/9/17 16:26 58 8/9/17 16:06 95 Room Air 04/17/17 15:40 36.4 89 16 160/88 95 Room Air Physical Exam General Appearance: WD/WN, no apparent distress Eyes: sclerae normal Neck: supple, no JVD, trachea midline Respiratory/Chest: lungs clear, normal breath sounds, no respiratory distress, no accessory muscle use Cardiovascular: regular rate, rhythm, no gallop, no murmur Abdomen: normal bowel sounds, non tender, soft Neurologic/Psychiatric: alert, oriented x 3 Skin: normal color, warm/dry Laboratory Results Last 24 Hours Test 04/17/17 16:20 04/17/17 18:33 04/18/17 00:05 04/18/17 06:17 White Blood Count 5.43 K/uL Red Blood Count 3.67 M/uL Hemoglobin 11.9 g/dL Hematocrit 35.8 % Mean Corpuscular Volume 97.5 fL Mean Corpuscular Hemoglobin 32.4 pg Mean Corpuscular Hemoglobin Concent 33.2 g/dl Platelet Count 167 K/uL Mean Platelet Volume 10.0 fL Neutrophils (%) (Auto) 67.3 % Lymphocytes (%) (Auto) 18.6 % Monocytes (%) (Auto) 9.9 % Eosinophils (%) (Auto) 2.0 % Basophils (%) (Auto) 0.9 % Neutrophils # (Auto) 3.65 K/uL Lymphocytes # (Auto) 1.01 K/uL Monocytes # (Auto) 0.54 K/uL Eosinophils # (Auto) 0.11 K/uL Basophils # (Auto) 0.05 K/uL RDW Standard Deviation 49.3 fL RDW Coefficient of Variation 13.9 % Immature Granulocyte % (Auto) 1.3 % Immature Granulocyte # (Auto) 0.07 K/uL Prothrombin Time 11.8 SECONDS Prothromb Time International Ratio 1.1 Activated Partial Thromboplast Time 28.7 SECONDS Partial Thromboplastin Ratio 1.1 Sodium Level 145 mmol/L Potassium Level 3.7 mmol/L Chloride Level 113 mmol/L Carbon Dioxide Level 25 mmol/L Anion Gap 7.0 mmol/L Blood Urea Nitrogen 19 mg/dl Creatinine 1.20 mg/dl Est Creatinine Clear Calc Drug Dose 55.4 ml/min Estimated GFR () 65.3 Estimated GFR (Non- 56.4 BUN/Creatinine Ratio 15.6 Random Glucose 127 mg/dl Calcium Level 8.5 mg/dl Total Bilirubin 0.7 mg/dl Direct Bilirubin 0.2 mg/dl Aspartate Amino Transf (AST/SGOT) 12 U/L Alanine Aminotransferase (ALT/SGPT) 19 U/L Alkaline Phosphatase 64 U/L Total Creatine Kinase 57 U/L Creatine Kinase MB 2.2 ng/ml Creatine Kinase MB Ratio 3.9 Troponin I < 0.015 ng/ml Total Protein 6.4 gm/dl Albumin 3.4 gm/dl Lipase 114 U/L Bedside Glucose 114 mg/dl 117 mg/dl Test 04/18/17 07:02 White Blood Count 5.42 K/uL Red Blood Count 3.38 M/uL Hemoglobin 10.8 g/dL Hematocrit 33.5 % Mean Corpuscular Volume 99.1 fL Mean Corpuscular Hemoglobin 32.0 pg Mean Corpuscular Hemoglobin Concent 32.2 g/dl RDW Standard Deviation 49.7 fL RDW Coefficient of Variation 13.9 % Platelet Count 158 K/uL Mean Platelet Volume 9.9 fL Sodium Level 145 mmol/L Potassium Level 3.8 mmol/L Chloride Level 113 mmol/L Carbon Dioxide Level 27 mmol/L Anion Gap 5.0 mmol/L Blood Urea Nitrogen 16 mg/dl Creatinine 1.10 mg/dl Est Creatinine Clear Calc Drug Dose 55.3 ml/min Estimated GFR () 72.6 Estimated GFR (Non- 62.6 BUN/Creatinine Ratio 14.1 Random Glucose 125 mg/dl Calcium Level 8.0 mg/dl Assessment and Plan Mr. Cazares is an 81 y/o male with PMHx of CAD with ND S/P Stents x 11, S/P Biventricular ICD, Paroxysmal Atrial Fibrillation, HTN, T2DM, CKD Stage III, Anemia of Chronic Disease, BPH, OA on Chronic Steroids, and GERD who presents for BRBPR. BRBPR superimposed on Anemia of Chronic Disease: Baseline Hgb 13 - Diverticular vs Hemorrhoids? - Hemoglobin stable at 10.9 - no need for transfusion - given significant cardiac history would transfuse if hemodynamically unstable or < 10 - Continue fluids at 125 mL/hr until colonoscopy and will D/C fluids when oral intake allowed - GI following - discussed with Dr. Alatorre - plan for colonoscopy today with possible EGD CAD with ND S/P Stents x 11; S/P ICD, Paroxysmal A Fib; HTN; HLD: - Tele with paced sinus rhythm with intermittent flutter - rate controlled - Hold ASA, Effient, and Eliquis - Coreg 12.5 mg BID - Zocor 40 mg daily - Hold Lisinopril, Lasix, and Aldactone while given fluids - and will evaluate kidney function after procedure on tomorrows labs T2DM: A1c 7.1 - HOld Onglyza and institute sliding scale coverage CKD Stage III: Baseline 1.2-1.4 - Continue to monitor Osteoarthritis: - Prednisone 3 mg PO qd GERD: - Prilosec converted to Protonix 40 mg daily DVT Prophylaxis: ASHLEY/SCDs; no chemical prophylaxis due to bleeding Code Status: FULL RESUSCITATION Disposition: If stable possible D/C tomorrow - lives in Sr[address] Living apt Continued [facility] stay due to: multiple IV medications needed Discharge planning: home
--- NOTE | 2017-04-18 12:53 | GI REPORT ---
Procedure Date: 04/18/2017 11:54 AM Procedure: Upper GI endoscopy Indications: Hematochezia, Melena Medicines: Propofol per Anesthesia Complications: No immediate complications. Estimated blood loss: None. Estimated Blood Loss: Estimated blood loss: none. Procedure: Pre-Anesthesia Assessment: - Prior to the procedure, a History and Physical was performed, and patient medications and allergies were reviewed. The patient's tolerance of previous anesthesia was also reviewed. The risks and benefits of the procedure and the sedation options and risks were discussed with the patient. All questions were answered, and informed consent was obtained. Prior Anticoagulants: The patient has taken Eliquis (apixaban), last dose was 1 day prior to procedure. ASA Grade Assessment: III - A patient with severe systemic disease. After reviewing the risks and benefits, the patient was deemed in satisfactory condition to undergo the procedure. After obtaining informed consent, the endoscope was passed under direct vision. Throughout the procedure, the patient's blood pressure, pulse, and oxygen saturations were monitored continuously. The scope was introduced through the mouth, and advanced to the jejunum. The upper GI endoscopy was accomplished without difficulty. The patient tolerated the procedure well. Findings: The examined esophagus was normal. A small hiatus hernia was found. The proximal extent of the gastric folds (end of tubular esophagus) was 39 cm from the incisors. The hiatal narrowing was 41 cm from the incisors. The Z-line was 39 cm from the incisors. The entire examined stomach was normal. The examined duodenum was normal. The examined jejunum was normal. The cardia and gastric fundus were normal on retroflexion. Retained gastric contents are not identified on this exam. Impression: - Normal esophagus. - Small hiatus hernia. - Normal stomach. - Normal examined duodenum. - Normal examined jejunum. - No specimens collected. Recommendation: - [facility]. - Perform a colonoscopy today. MD Basil Javier MD 04/18/2017 12:52:54 PM This report has been signed electronically. Note Initiated On: 04/18/2017 11:54 AM I attest to the content of the Intraoperative Record and orders documented therein, exceptions below
--- NOTE | 2017-04-18 13:01 | GI REPORT ---
Procedure Date: 04/18/2017 11:53 AM Procedure: Colonoscopy Indications: Hematochezia, Melena Medicines: Propofol per Anesthesia Complications: No immediate complications. Estimated blood loss: None. Estimated Blood Loss: Estimated blood loss: none. Procedure: Pre-Anesthesia Assessment: - Prior to the procedure, a History and Physical was performed, and patient medications and allergies were reviewed. The patient's tolerance of previous anesthesia was also reviewed. The risks and benefits of the procedure and the sedation options and risks were discussed with the patient. All questions were answered, and informed consent was obtained. Prior Anticoagulants: The patient has taken Eliquis (apixaban), last dose was 1 day prior to procedure. ASA Grade Assessment: III - A patient with severe systemic disease. After reviewing the risks and benefits, the patient was deemed in satisfactory condition to undergo the procedure. After I obtained informed consent, the scope was passed under direct vision. Throughout the procedure, the patient's blood pressure, pulse, and oxygen saturations were monitored continuously. The scope was introduced through the anus and advanced to the terminal ileum, with identification of the appendiceal orifice and IC valve. The colonoscopy was performed without difficulty. The patient tolerated the procedure well. The quality of the bowel preparation was good. Findings: The perianal and digital rectal examinations were normal. Pertinent negatives include normal sphincter tone, no palpable rectal lesions and no anal lesion or abnormality was detected. Red blood was found in the recto-sigmoid colon and in the sigmoid colon. Many small-mouthed diverticula were found in the entire colon. The terminal ileum appeared normal. Non-bleeding hemorrhoids were found during retroflexion. The hemorrhoids were moderate. No additional abnormalities were found on retroflexion. Impression: - Blood in the recto-sigmoid colon and in the sigmoid colon. - Diverticulosis in the entire examined colon. - The examined portion of the ileum was normal. - Non-bleeding hemorrhoids. - No specimens collected. Recommendation: - [facility]. - Follow H/H; if bleeding continues , would consult surgery and consider tagged red cell scan to support location of bleeding. Inspection of TI lumen did not reveal blood/hematin. MD Basil Javier MD 04/18/2017 1:01:29 PM This report has been signed electronically. Note Initiated On: 04/18/2017 11:53 AM I attest to the content of the Intraoperative Record and orders documented therein, exceptions below
--- NOTE | 2017-04-18 13:27 | Anesthesiology Progress Note ---
Anesthesia Post Op Note Date & Time Apr 18, 2017 at 13:27 Vital Signs Pain Intensity: 0.0 Vital Signs Past 12 Hours Date Time Temp Pulse Resp B/P (MAP) Pulse Ox O2 Delivery O2 Flow Rate FiO2 04/18/17 13:19 60 20 117/51 (73) 94 Room Air 04/18/17 13:04 60 20 142/64 (90) 100 Mask 5 04/18/17 12:49 63 20 117/56 (76) 92 Mask 10 04/18/17 11:40 36.5 76 20 155/83 (107) 97 Room Air 04/18/17 11:23 36.7 63 18 150/72 (98) 98 Room Air 04/18/17 08:00 Room Air 04/18/17 07:22 36.5 66 18 149/73 (98) 95 Room Air 04/18/17 05:16 36.4 66 21 135/82 95 Room Air 04/18/17 04:02 Room Air 04/18/17 03:41 36.4 66 21 135/82 (99) 95 Room Air Notes Mental Status: alert / awake / arousable, participated in evaluation Pt Amnestic to Procedure: Yes Nausea / Vomiting: adequately controlled Pain: adequately controlled Airway Patency, RR, SpO2: stable & adequate BP & HR: stable & adequate Hydration State: stable & adequate Anesthetic Complications: no major complications apparent
[2017-04-18] MEDS ORDERED: NURSING VERBAL MED ORDER ONE (17:00)
[2017-04-18 17:23] LABS: HEMATOCRIT 35.4 % (42-52)
[2017-04-19] VITALS (7 sets, daily range): BP systolic 118–137; BP diastolic 71–73; PULSE 61–65; TEMP 36.4–36.5; O2SAT 94–97
[2017-04-19] MEDS: NSS + 20MEQ KCL 1000ML 1,000 ML IV SCH (04:52)
[2017-04-19 06:22] LABS: HEMATOCRIT 31.7 % (42-52); MEAN CELL VOLUME 99.4 fL (80-100); MEAN CORPUSCULAR HEMOGLOBIN 32.3 pg (25-34); MEAN CORPUSCULAR HGB CONC 32.5 g/dl (32-36); MEAN PLATELET VOLUME 10.1 fL (7.4-10.4); PLATELET COUNT 148 K/uL (130-400); RED BLOOD COUNT 3.19 M/uL (4.7-6.1); WHITE BLOOD COUNT 5.92 K/uL (4.8-10.8)
[2017-04-19 06:57] LABS: BUN/CREATININE RATIO 11.6 (10-20); CALCIUM 7.8 mg/dl (8.5-10.1); CREATININE 1.3 mg/dl (0.60-1.40); POTASSIUM 3.9 mmol/L (3.5-5.1)
[2017-04-19] MEDS: FINASTERIDE 5 MG TAB PO SCH (07:53)
[2017-04-19] MEDS: TAMSULOSIN HCL 0.4 MG CAP PO SCH (07:53)
[2017-04-19] MEDS: SIMVASTATIN 40 MG TAB PO SCH (07:53)
[2017-04-19] MEDS: PANTOprazole SOD 40 MG TAB PO SCH (07:53)
[2017-04-19] MEDS: CARVEDILOL 12.5 MG TAB PO SCH (07:53)
[2017-04-19] MEDS: INSULIN ASPART 100 UNITS/ML 3 ML PEN SC SCH ×2 (07:56→12:10)
[2017-04-19 12:35] LABS: HEMATOCRIT 34.5 % (42-52)
--- NOTE | 2017-04-19 13:59 | Discharge Instructions ---
Discharge Instructions Date of Service Apr 19, 2017. Admission Reason for Admission: Rectal Bleed Discharge Discharge Diagnosis / Problem: diverticular bleeding Discharge Goals Goal(s): Diagnostic testing, Therapeutic intervention Activity Recommendations Activity Limitations: resume your previous activity . Current Hospital Diet Patient's current hospital diet: AHA Diet (Heart Healthy), Diabetes Type 2 Diet Discharge Diet Recommended Diet: Regular Diet Procedures Procedures Performed: EGD/COLONOSCOPY Pending Studies Studies pending at discharge: no Laboratory Results Hemoglobin A1c Test 03/07/17 09:19 Range/Units Estimated Average Glucose 157 mg/dl Hemoglobin A1c 7.1 H 4.5-5.6 % Medical Emergencies . Who to Call and When: Medical Emergencies: If at any time you feel your situation is an emergency, please call 911 immediately. . Non-Emergent Contact Non-Emergency issues call your: Primary Care Provider Call Non-Emergent contact if: temperature is above 101, your pain is unusual for you . . "Provider Documentation" section prepared by Addison Calzada. . VTE Core Measure Inpt VTE Proph given/why not?: Ritu Abdul, SCD's
--- NOTE | 2017-04-19 14:06 | Discharge Summary ---
Discharge Summary Date of Service Apr 19, 2017. Discharge Summary Admission Date: Apr 17, 2017 at 18:52 Discharge Date: Apr 19, 2017 Discharge Disposition: Home Principal Diagnosis: lower gi bleeding Medication Reconciliation Continued Medications: Apixaban (Eliquis) 2.5 Mg Tab 2.5 MG PO BID Aspirin (Aspirin Ec) 81 Mg Tab 81 MG PO QAM Azelastine Hcl (Astelin Nasal Huger) 200 Sprays/30 Ml Huger 1-2 SPRAYS NA BID, BTL Carvedilol (Coreg) 12.5 Mg Tab 12.5 MG PO BID Finasteride (Proscar) 5 Mg Tab 5 MG PO DAILY Furosemide (Lasix) 20 Mg Tab 20 MG PO DAILY Lisinopril (Zestril) 20 Mg Tab 20 MG PO DAILY, TAB Nitroglycerin (Nitrostat) 0.4 Mg Tab 0.4 MG UT UD PRN for Chest Pain, BTL Omeprazole (Prilosec) 20 Mg Capcr 20 MG PO DAILY, CAP Prasugrel Hcl (Effient) 10 Mg Tab 10 MG PO DAILY, TAB Prednisone (Prednisone) 1 Mg Tab 3 MG PO DAILY, #270 Simvastatin (Zocor) 40 Mg Tab 40 MG PO QAM, TAB Spironolactone (Aldactone) 25 Mg Tab 25 MG PO DAILY, TAB Tamsulosin Hcl (Flomax) 0.4 Mg Cap 0.4 MG PO QAM [Onglyza] () 5 MG PO DAILY Discharge Exam Review of Systems: Constitutional: No fever, No chills Respiratory: No cough, No sputum Cardiovascular: No chest pain, No orthopnea, No PND Abdomen: No pain, No nausea, No vomiting Physical Exam: General Appearance: WD/WN, no apparent distress Eyes: PERRL, EOMI Neck: supple, thyroid normal Respiratory/Chest: chest non-tender, lungs clear, normal breath sounds Abdomen / GI: normal bowel sounds, non tender, soft Hospital Course Mr. Cazares is an 81 y/o male who presented for BRBPR, is on full anticoagulation with eliquis, had upper and lower endscopies with no signs of active bleeding but old blood in diverticuli and some hemorrhoids. PMHx of CAD with MT S/P Stents x 11, S/P Biventricular ICD, Paroxysmal Atrial Fibrillation, HTN, T2DM, CKD Stage III, Anemia of Chronic Disease, BPH, OA on Chronic Steroids, and GERD BRBPR superimposed on Anemia of Chronic Disease: hgb has remained stable, no signs of active bleeding, will restart asa, eliquis and effient 04/20 CAD with MT S/P Stents x 11; S/P ICD, Paroxysmal A Fib; HTN; HLD: ASA, Effient, and Eliquis - Coreg 12.5 mg BID Zocor 40 mg daily resumed home meds of Lisinopril, Lasix, and Aldactone T2DM: A1c 7.1 continue Onglyza CKD Stage III: Baseline 1.2-1.4 Osteoarthritis:chronic daily Prednisone 3 mg PO qd GERD:- Prilosec Code Status: FULL RESUSCITATION Total Time Spent: Greater than 30 minutes This includes examination of the patient, discharge planning, medication reconciliation, and communication with other providers. Discharge Instructions Please refer to the electronic Patient Visit Report (Discharge Instructions) for additional information. Additional Copies To Bee Johnson C.R.N.P.
== END 2017-04-19 16:49 | disposition home or self-care (01) ==
LOC: C.EDB 15:36 → C.2T 18:52 → ENRESERV 19:11
PROVIDERS: ADMIT Internal Medicine; ATTEND Internal Medicine
DX: K92.1 Melena (principal); K57.30 Diverticulosis of large intestine without perforation or abscess without bleeding; K64.8 Other hemorrhoids; K44.9 Diaphragmatic hernia without obstruction or gangrene; I48.0 Paroxysmal atrial fibrillation; I25.10 Atherosclerotic heart disease of native coronary artery without angina pectoris; I25.2 Old myocardial infarction; I12.9 Hypertensive chronic kidney disease with stage 1 through stage 4 chronic kidney disease, or unspecified chronic kidney disease; N18.3 Chronic kidney disease, stage 3 (moderate); E11.22 Type 2 diabetes mellitus with diabetic chronic kidney disease; D63.8 Anemia in other chronic diseases classified elsewhere; E78.5 Hyperlipidemia, unspecified; N40.0 Benign prostatic hyperplasia without lower urinary tract symptoms; M19.90 Unspecified osteoarthritis, unspecified site; K21.9 Gastro-esophageal reflux disease without esophagitis; Z95.810 Presence of automatic (implantable) cardiac defibrillator; Z95.5 Presence of coronary angioplasty implant and graft; Z79.82 Long term (current) use of aspirin; Z79.01 Long term (current) use of anticoagulants; Z79.899 Other long term (current) drug therapy; Z79.52 Long term (current) use of systemic steroids

== ENCOUNTER 2017-04-22 14:40 | Emergency (ER) | payer OTHER ==
[~2017-04-22] VITALS: Ht 177.8 cm; Wt 96.2 kg
[~2017-04-22 14:40] MED LIST changes: -IBUP-1050 PO; +NTRGSL/4 UT; +ONGLYZA PO; +PRD/1 PO; -SAXA1TAB64 PO; -TRAM-10 PO
[2017-04-22 14:48] VITALS: TEMP 36.3; Ht 177.8 cm; Wt 96.2 kg
--- NOTE | 2017-04-22 15:23 | EMERGENCY ROOM VISIT NOTE ---
History Report prepared by Jose Antonio: Sultana Quintana Under the Supervision of: Dr. Db Joseph D.O. First contact with patient: 14:53 Chief Complaint: SWELLING TO EXTREMITY Stated Complaint: TOO MUCH WATER IN LEGS AND BODY History of Present Illness The patient is an 81 year old male who presents to the Emergency Room with complaints of persistent fluid overload that began two days ago. The patient stats that two days ago he had a colonoscopy and states that he feels he was overloaded with water. He states that he is on Lasix. The patient reports bilateral lower extremity swelling, and pain to the upper part in his legs. He additionally reports abdominal distension. The patient states that he has become concerned because he has a history of five previous myocardial infarctions. He states that he consulted his PCP regarding his symptoms and he states that he was instructed to go to the emergency room for further evaluation and treatment. The patient states that he has had to increase the size of his pants today due to all the swelling. According to records the patient has retained 6 pounds of fluid. The patient states that he tried wearing compression stockings, but notes pain with them. He reports an increase in urination. The patient denies any chest pain or shortness of breath. Source of History: patient Onset: two days ago Position: other (global) Quality: other (fluid overload) Timing: other (persistent) Associated Symptoms: + urinary symptoms (increase in urination), No chest pain, No SOB Note: Associated Symptoms: retained 6 pounds of fluid, abdominal distension, swelling to his lower extremities. Review of Systems See HPI for pertinent positives & negatives. A total of 10 systems reviewed and were otherwise negative. 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 (7) Pacemaker (8) Rectal bleed Surgical Problems: (1) Stented coronary artery Family History Diabetes mellitus Heart disease Hypertension Mesothelioma Myocardial infarction Social History Smoking Status: Never Smoker Alcohol Use: occasionally Drug Use: none Marital Status: Housing Status: lives with family Occupation Status: retired Current/Historical Medications Scheduled Apixaban (Eliquis), 2.5 MG PO BID Aspirin (Aspirin Ec), 81 MG PO QAM Azelastine Hcl (Astelin Nasal [place]), 1-2 SPRAYS NA BID Carvedilol (Coreg), 12.5 MG PO BID Finasteride (Proscar), 5 MG PO DAILY Furosemide (Lasix), 20 MG PO DAILY Lisinopril (Zestril), 20 MG PO DAILY Omeprazole (Prilosec), 20 MG PO DAILY Prasugrel Hcl (Effient), 10 MG PO DAILY Prednisone (Prednisone), 3 MG PO DAILY Simvastatin (Zocor), 40 MG PO QAM Spironolactone (Aldactone), 25 MG PO DAILY Tamsulosin Hcl (Flomax), 0.4 MG PO QAM [Onglyza], 5 MG PO DAILY Scheduled PRN Nitroglycerin (Nitrostat), 0.4 MG UT UD PRN for Chest Pain Allergies Coded Allergies: Latex2 -Systemic Allergic Response (Verified Allergy, Severe, swelling and itching, 04/18/17) has an epi pen BEE STING (Verified Allergy, Unknown, ., 04/18/17) Procaine (Verified Adverse Reaction, Mild, DIZZY, 04/18/17) Physical Exam Vital Signs Date Time Temp Pulse Resp B/P (MAP) Pulse Ox O2 Delivery O2 Flow Rate FiO2 04/22/17 14:48 36.3 84 20 152/84 94 Room Air Physical Exam CONSTITUTIONAL/VITAL SIGNS: Reviewed / noted above. GENERAL: Non-toxic in appearance. INTEGUMENTARY: Warm, dry, and [place]. HEAD: Normocephalic. EYES: without scleral icterus or trauma. ENT/OROPHARYNX: clear and moist. LYMPHADENOPATHY/NECK: Is supple without lymphadenopathy or meningismus. RESPIRATORY: Lungs clear and equal. CARDIOVASCULAR: Regular rate and rhythm. GI/ABDOMEN: Soft and nontender. No organomegaly or pulsatile mass. No rebound or guarding. Normal bowel sounds. EXTREMITIES: Bilateral lower extremity pitting edema, no calf tenderness. BACK: No CVA tenderness. NEUROLOGICAL: Intact without focal deficits. PSYCHIATRIC: normal affect. MUSCULOSKELETAL: Normally developed with good muscle tone. Medical Decision & Procedures ED Course 1458: Previous medical records were reviewed. The patient was evaluated in room C7. A complete history and physical examination was performed. 1503: I discussed the exam findings with him and I discussed the treatment plan. He verbalized complete understanding and agreement. He is ready to go home shortly. Medical Decision The patient is an 81 year old male who presents to the ED with complaints of fluid overload. Differential diagnosis include dependent edema, DVT, infection, congestive heart failure. This is an 81-year-old male who presents to the ED with a chief complaint of lower extremities edema. The patient states that he was here recently. He was diagnosed with a GI bleed on 04/17/17. The patient received IV fluids while he was here in the emergency department as well as during his admission and colonoscopy. The patient was ultimately discharged on the , 2 days ago. The patient was discharged on ASHLEY hose. He states that he was not able to put them on after he removed those. He was told to come into the ED for his swelling. The patient is on Eliquis and Lasix chronically. The patient is on 20 mg of Lasix once a day. The patient reports that he urinated about 9 times today. He denies any chest pains or shortness of breath. He denies any lower extremity pain. He has no additional complaints. He states that he otherwise feels fine. He has no exertional dyspnea. On exam, the patient has bilateral lower extremity pitting edema. Review of his weight on admission versus his weight today reveals that he has gained almost 6 kg. The patient states that he is unable to get his ASHLEY hose back on. The patient's lungs are clear and his exam was otherwise unremarkable. The patient was provided with larger ASHLEY hose. He was told to stay active and elevate the legs were not active. He was told to double his Lasix for the next several days as needed for assisting with lower extremity edema. He will return for any chest pains, shortness of breath or other new symptoms. The patient's blood work on the revealed normal kidney function, normal electrolytes and a stable hemoglobin around 11. Medication Reconcilliation Current Medication List: was personally reviewed by me Blood Pressure Screening Patient's blood pressure: Elevated blood pressure Blood pressure disposition: Elevated BP felt to be situational, Did not require urgent referral Impression Primary Impression: Pedal edema Scribe Attestation The scribe's documentation has been prepared under my direction and personally reviewed by me in its entirety. I confirm that the note above accurately reflects all work, treatment, procedures, and medical decision making performed by me. Departure Information Dispostion Home / Self-Care Referrals Bee Johnson C.R.N.P. (PCP) Patient Instructions My [facility] [place] [employer] Additional Instructions Take your Lasix twice a day for the next 3 days as needed for lower show any edema. Use compression stockings as provided daily. Elevate legs when not active. Return to the emergency department for chest pains, shortness of breath or other concerning symptoms. Anticipate steady improvement of symptoms over the next week or 2.
[2017-04-22 15:28] VITALS: BP 142/86; PULSE 90; O2SAT 92
== END 2017-04-22 15:30 | disposition home or self-care (01) ==
LOC: C.EDB 14:44 → C.EDC 15:30
DX: R60.0 Localized edema (principal); I25.2 Old myocardial infarction; I25.10 Atherosclerotic heart disease of native coronary artery without angina pectoris; I10 Essential (primary) hypertension; I48.91 Unspecified atrial fibrillation; E78.5 Hyperlipidemia, unspecified; Z95.810 Presence of automatic (implantable) cardiac defibrillator; Z98.61 Coronary angioplasty status; Z83.3 Family history of diabetes mellitus; Z82.49 Family history of ischemic heart disease and other diseases of the circulatory system; Z80.8 Family history of malignant neoplasm of other organs or systems; Z79.01 Long term (current) use of anticoagulants; Z79.52 Long term (current) use of systemic steroids; Z79.82 Long term (current) use of aspirin; Z79.899 Other long term (current) drug therapy

== ENCOUNTER → 2017-04-29 | Outpatient (CLI) | payer OTHER | END | disposition home or self-care (01) | LOC: C.LABBFT 09:37 | PROVIDERS: ATTEND Nurse Practitioner | DX: E87.70 Fluid overload, unspecified (principal); K62.5 Hemorrhage of anus and rectum; N40.0 Benign prostatic hyperplasia without lower urinary tract symptoms ==

== ENCOUNTER → 2017-05-21 | Outpatient (CLI) | payer OTHER ==
[2017-05-21 12:28] LABS: HEMATOCRIT 38.4 % (42-52); MEAN CELL VOLUME 96.7 fL (80-100); MEAN CORPUSCULAR HEMOGLOBIN 31.5 pg (25-34); MEAN CORPUSCULAR HGB CONC 32.6 g/dl (32-36); MEAN PLATELET VOLUME 10.8 fL (7.4-10.4); PLATELET COUNT 178 K/uL (130-400); RED BLOOD COUNT 3.97 M/uL (4.7-6.1); WHITE BLOOD COUNT 6.02 K/uL (4.8-10.8)
[2017-05-21 12:44] LABS: URINE APPEARANCE CLEAR (CLEAR); URINE BILIRUBIN NEG (NEG); URINE COLOR YELLOW; URINE EPITHELIAL CELL AUTO 0-5 /lpf (0-5); URINE NITRITE NEG (NEG); URINE SPECIFIC GRAVITY 1.021 (1.000-1.030); UROBILINOGEN NEG (NEG)
[2017-05-21 12:53] LABS: MANUAL MICROSCOPIC REQUIRED? NO; REVIEW REQ? NO
[2017-05-21 13:12] LABS: BLOOD UREA NITROGEN 42 mg/dl (7-18); BUN/CREATININE RATIO 27.7 (10-20); CALCIUM 8.9 mg/dl (8.5-10.1); CARBON DIOXIDE 22 mmol/L (21-32); CHLORIDE 109 mmol/L (98-107); CHOLESTEROL 140 mg/dl (0-200); GLUCOSE 131 mg/dl (70-99); POTASSIUM 3.7 mmol/L (3.5-5.1); SODIUM 139 mmol/L (136-145); TRIGLYCERIDES 117 mg/dl (0-150); VERY LOW DENSITY LIPOPROT CALC 23 mg/dl
[2017-05-21 13:18] LABS: URINE PROTIEN/CREAT RATIO 0.1 (0-0.2); URINE TOTAL PROTEIN 18.8 mg/dl (0-11.9)
[2017-05-21 13:18] LABS: CHOLESTEROL/HDL RATIO 2.8; FERRITIN 135.1 ng/ml (8.0-388.0); HDL CHOLESTEROL 50 mg/dl; LDL CHOLESTEROL CALCULATED 67 mg/dl; PHOSPHORUS 3.5 mg/dl (2.5-4.9); TOTAL IRON BINDING CAPACITY 279 mcg/dl (250-450)
== END | disposition home or self-care (01) ==
LOC: C.LABBFT 08:01
PROVIDERS: ATTEND Internal Medicine Nephrology
DX: N18.3 Chronic kidney disease, stage 3 (moderate) (principal); Z95.810 Presence of automatic (implantable) cardiac defibrillator; D64.9 Anemia, unspecified; I95.9 Hypotension, unspecified; E61.1 Iron deficiency; I25.10 Atherosclerotic heart disease of native coronary artery without angina pectoris

== ENCOUNTER 2017-08-12 23:07 | Emergency (ER) | payer OTHER ==
[~2017-08-12] VITALS: Ht 177.8 cm; Wt 78.2 kg
[2017-08-12 23:11] VITALS: Ht 177.8 cm; Wt 78.2 kg
[2017-08-13 00:12] VITALS: BP 125/65; PULSE 80; TEMP 36.6; O2SAT 100
--- NOTE | 2017-08-13 02:13 | EMERGENCY ROOM VISIT NOTE ---
History Report prepared by Jose Antonio: Luma Bell Under the Supervision of: Dr. Addison Stover M.D. First contact with patient: 23:11 Chief Complaint: NOSE BLEED (MINOR) Stated Complaint: EPISTAXIS History of Present Illness The patient is a 81 year old male who presents to the Emergency Room with complaints of an episode of a nosebleed beginning 2 hours [employer]. The patient was not blowing his nose. He states that he has been running around a lot more than usual over the past 3 days. Today he bent over quickly and his nosebleed began. He thinks that the bleeding is coming from the right naris. This has happened occasionally in the past and the patient has had to have his nose cauterized. He is on Eliquis for a-fib. The patient rates his current discomfort as a 2/10 in severity. He denies fevers, abdominal pain, rectal bleeding, melena, and hematochezia. Source of History: patient Onset: 2 hours [employer] Position: nose Symptom Intensity: 2/10 Quality: other (bleeding) Timing: other (episode) Modifying Factors (Worsening): other (bending over) Associated Symptoms: No fevers, No abdominal pain, No melena, No hematochezia Review of Systems See HPI for pertinent positives & negatives. A total of 10 systems reviewed and were otherwise negative. Past Medical & Surgical Medical Problems: (1) Atherosclerosis of coronary artery of [place] heart (2) Atrial fibrillation (3) Benign hypertension (4) Hx of myocardial infarction (5) Hyperlipidemia (6) ICD (implantable cardioverter-defibrillator) in place (7) Pacemaker (8) Rectal bleed Surgical Problems: (1) Stented coronary artery Family History Diabetes mellitus Heart disease Hypertension Mesothelioma Myocardial infarction Social History Smoking Status: Never Smoker Alcohol Use: occasionally Drug Use: none Marital Status: Housing Status: lives with family Occupation Status: retired Current/Historical Medications Scheduled Apixaban (Eliquis), 2.5 MG PO BID Aspirin (Aspirin Ec), 81 MG PO QAM Azelastine Hcl (Astelin Nasal [place]), 1-2 SPRAYS NA BID Carvedilol (Coreg), 12.5 MG PO BID Finasteride (Proscar), 5 MG PO DAILY Furosemide (Lasix), 20 MG PO DAILY Lisinopril (Zestril), 20 MG PO DAILY Omeprazole (Prilosec), 20 MG PO DAILY Prasugrel Hcl (Effient), 10 MG PO DAILY Prednisone (Prednisone), 3 MG PO DAILY Simvastatin (Zocor), 40 MG PO QAM Spironolactone (Aldactone), 25 MG PO DAILY Tamsulosin Hcl (Flomax), 0.4 MG PO QAM [Onglyza], 5 MG PO DAILY Scheduled PRN Nitroglycerin (Nitrostat), 0.4 MG UT UD PRN for Chest Pain Allergies Coded Allergies: Latex2 -Systemic Allergic Response (Verified Allergy, Severe, swelling and itching, 04/18/17) has an epi pen BEE STING (Verified Allergy, Unknown, ., 04/18/17) Procaine (Verified Adverse Reaction, Mild, DIZZY, 04/18/17) Physical Exam Vital Signs Date Time Temp Pulse Resp B/P (MAP) Pulse Ox O2 Delivery O2 Flow Rate FiO2 08/13/17 00:12 36.6 80 18 125/65 100 Room Air 08/12/17 23:15 82 08/12/17 23:11 36.8 82 18 126/68 100 Room Air Physical Exam Constitutional: Vital signs reviewed. Eyes: Pupils are equal round reactive to light. Conjunctiva are noninjected. ENT: He has no epistaxis from either nares, no blood in the posterior throat. Pharynx is clear without erythema or exudate. Mucous membranes are moist. Neck supple without meningeal signs. Respiratory: Clear to auscultation bilaterally. Breath sounds are equal bilaterally. Cardiovascular: Regular rate and rhythm. No rubs or gallops. GI: Soft, nondistended and nontender. Bowel sounds are present. Musculoskeletal: No peripheral edema. No lower extremity tenderness. Integumentary: No cyanosis. 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 Neurological: The patient is awake and alert. No focal deficits. Psychiatric: Normal affect. Medical Decision & Procedures ED Course 2311: The patient was evaluated in room B9. A complete history and physical exam was performed. 2340: Upon reevaluation the patient has no active bleeding. 0010: I reassessed the patient at this time. He is feeling better and resting comfortably. He has not had any active bleeding. I instructed the patient on how to control bleeding should it occur. I answered all pertaining questions that he had. He expressed understanding and verbalized agreement. The patient will be discharged home. Medical Decision This is an 81-year-old male who presents with epistaxis. I did perform a limited focused review of portions of the patient's old chart on the electronic medical record. The patient has had no recent pertinent visits to this hospital. I did evaluate the patient as noted above. His epistaxis has completely resolved. He is on our requests for atrial fibrillation. We did observe him here for approximately an hour. He had no current epistaxis. I did have a discussion with them on how to control his bleeding should it start again. He doesn't require any packing cauterization at this time. He was informed that should he have worsening symptoms that he cannot control at home he would need to come back for likely packing. He was discharged in good condition. Medication Reconcilliation Current Medication List: was personally reviewed by me Blood Pressure Screening Patient's blood pressure: Elevated blood pressure Blood pressure disposition: Elevated BP felt to be situational Impression Primary Impression: Epistaxis Additional Impression: Anticoagulated Scribe Attestation The scribe's documentation has been prepared under my direct and personally reviewed by me in its entirety. I confirm that the note above accurately reflects all work, treatment, procedures, and medical decision making performed by me. Departure Information Dispostion Home / Self-Care Referrals Bee Johnson, C.R.N.P. (PCP) Forms HOME CARE DOCUMENTATION FORM, IMPORTANT VISIT INFORMATION, WORK / SCHOOL INSTRUCTIONS Patient Instructions My [facility], Nosebleed Additional Instructions You have been examined and treated today on an emergency basis only. This is not a substitute for, or an effort to provide, complete comprehensive medical care. It is impossible to recognize and treat all injuries or illnesses in a single emergency department visit. It is therefore important that you follow up closely with your physician. Call as soon as possible for an appointment. Return for worsening symptoms or if you develop lightheadedness, chest pain, shortness of breath or any other concerning symptoms. Problem Qualifiers
== END 2017-08-13 00:19 | disposition home or self-care (01) ==
LOC: EDBD 23:07 → C.EDB 23:08
DX: R04.0 Epistaxis (principal); Z79.01 Long term (current) use of anticoagulants; I48.91 Unspecified atrial fibrillation; I25.10 Atherosclerotic heart disease of native coronary artery without angina pectoris; I10 Essential (primary) hypertension; E78.5 Hyperlipidemia, unspecified; I25.2 Old myocardial infarction; Z95.5 Presence of coronary angioplasty implant and graft; Z95.0 Presence of cardiac pacemaker; Z79.82 Long term (current) use of aspirin; Z83.3 Family history of diabetes mellitus; Z82.49 Family history of ischemic heart disease and other diseases of the circulatory system; Z80.9 Family history of malignant neoplasm, unspecified

== ENCOUNTER → 2017-09-20 | Outpatient (CLI) | payer OTHER ==
[2017-09-20 12:23] LABS: HEMATOCRIT 39.5 % (42-52); MEAN CELL VOLUME 96.8 fL (80-100); MEAN CORPUSCULAR HEMOGLOBIN 31.9 pg (25-34); MEAN CORPUSCULAR HGB CONC 32.9 g/dl (32-36); MEAN PLATELET VOLUME 10.7 fL (7.4-10.4); PLATELET COUNT 185 K/uL (130-400); RED CELL DISTRIBUTION WIDTH CV 14.6 % (11.5-14.5); RED CELL DISTRIBUTION WIDTH SD 51.5 fL (36.4-46.3); WHITE BLOOD COUNT 7.29 K/uL (4.8-10.8)
[2017-09-20 12:59] LABS: ALBUMIN 3.8 gm/dl (3.4-5.0); BLOOD UREA NITROGEN 39 mg/dl (7-18); CALCIUM 8.7 mg/dl (8.5-10.1); CARBON DIOXIDE 24 mmol/L (21-32); CREATININE 1.73 mg/dl (0.60-1.40); GLUCOSE 145 mg/dl (70-99); PHOSPHORUS 3.5 mg/dl (2.5-4.9); POTASSIUM 4.1 mmol/L (3.5-5.1); SODIUM 138 mmol/L (136-145)
== END | disposition home or self-care (01) ==
LOC: C.LABBFT 10:13
PROVIDERS: ATTEND Internal Medicine Nephrology
DX: I12.9 Hypertensive chronic kidney disease with stage 1 through stage 4 chronic kidney disease, or unspecified chronic kidney disease (principal); N18.3 Chronic kidney disease, stage 3 (moderate); D64.9 Anemia, unspecified; R26.81 Unsteadiness on feet; E55.9 Vitamin D deficiency, unspecified

== ENCOUNTER 2017-09-29 10:23 | Emergency (ER) | payer OTHER ==
[~2017-09-29] VITALS: Ht 177.8 cm; Wt 89.2 kg
[~2017-09-29 10:23] MED LIST changes: -ASTN; -SPIR25TA PO
[2017-09-29 10:35] VITALS: Ht 177.8 cm; Wt 89.2 kg
[2017-09-29] MEDS ORDERED: SPIR25TA89 PO (11:02)
--- NOTE | 2017-09-29 11:25 | EMERGENCY ROOM VISIT NOTE ---
History Report prepared by Simonibyeny: Colette Man Under the Supervision of: Dr. Christian Price M.D. First contact with patient: 11:16 Chief Complaint: FALL Stated Complaint: RIGHT SIDE BACK PAIN/ LEFT KNEE PAIN FROM FALL YES History of Present Illness The patient is a 81 year old male who presents to the Emergency Room with complaints of a fall that occurred yesterday. He is accompanied by his daughter. He states he had finished cleaning his home when he started to feel dizzy and reached for a chair to sit down. He missed the chair and fell, landing on his right side. He did not hit his head or lose consciousness. He complains of right sided back pain and left knee pain from the fall, rating his discomfort as an 8/10 in severity. The patient denies any abdominal pain, hematochezia or hematuria. He does take daily blood thinners for a history of atrial fibrillation. His daughter notes he has a history of a previous broken rib from a fall in 2016. Source of History: patient Onset: yesterday Position: other (global) Symptom Intensity: 8/10 Timing: resolved Associated Symptoms: No LOC, No abdominal pain, No hematochezia, No urinary symptoms Review of Systems See HPI for pertinent positives & negatives. A total of 10 systems reviewed and were otherwise negative. Past Medical & Surgical Medical Problems: (1) Atherosclerosis of coronary artery of [place] heart (2) Atrial fibrillation (3) Benign hypertension (4) Hx of myocardial infarction (5) Hyperlipidemia (6) ICD (implantable cardioverter-defibrillator) in place (7) Pacemaker (8) Rectal bleed Surgical Problems: (1) Stented coronary artery Family History Diabetes mellitus Heart disease Hypertension Mesothelioma Myocardial infarction Social History Smoking Status: Never Smoker Alcohol Use: occasionally Drug Use: none Marital Status: Housing Status: [employer] Occupation Status: retired Current/Historical Medications Scheduled Apixaban (Eliquis), 2.5 MG PO BID Aspirin (Aspirin Ec), 81 MG PO QAM Carvedilol (Coreg), 12.5 MG PO BID Finasteride (Proscar), 5 MG PO QAM Furosemide (Lasix), 20 MG PO QAM Lisinopril (Zestril), 20 MG PO QAM Omeprazole (Prilosec), 20 MG PO QAM Prasugrel Hcl (Effient), 30 MG PO QAM Prednisone (Prednisone), 3 MG PO QAM Simvastatin (Zocor), 40 MG PO QAM Spironolactone (Aldactone), 25 MG PO DAILY Tamsulosin Hcl (Flomax), 0.4 MG PO QAM [Onglyza], 5 MG PO QAM Scheduled PRN Nitroglycerin (Nitrostat), 0.4 MG UT UD PRN for Chest Pain Allergies Coded Allergies: BEE STING (Verified Allergy, Unknown, ., 09/26/17) Latex1 -Allergic Contact Dermititis (Verified Allergy, Unknown, ITCHING, LOCALIZED SWELLING,REDNESS, 09/26/17) Procaine (Verified Adverse Reaction, Mild, DIZZY, 09/26/17) Physical Exam Vital Signs Date Time Temp Pulse Resp B/P (MAP) Pulse Ox O2 Delivery O2 Flow Rate FiO2 09/29/17 13:40 36.4 62 18 121/55 97 09/29/17 13:38 62 18 121/55 97 Room Air 09/29/17 11:41 64 18 124/59 97 Room Air 09/29/17 10:35 36.4 86 20 147/76 96 Room Air Physical Exam GENERAL: Patient is elderly appearing and in minimal distress. HEENT: No acute trauma, normocephalic atraumatic, mucous membranes moist, no nasal congestion, no scleral icterus. NECK: No stridor, no adenopathy, no meningismus, trachea is midline. LUNGS: No dyspnea. Clear to auscultation and equal bilaterally. No wheeze, no rhonchi. HEART: Regular rate and rhythm. No murmurs, rubs, gallops appreciated. ABDOMEN: Soft, nontender, bowel sounds positive, no masses appreciated, no peritonitis. BACK: Tenderness to palpation of right lower lateral back. No midline tenderness. EXTREMITIES: Hemarthrosis of left knee, pain on ROM, tenderness of lateral knee. Normal motion all extremities, no cyanosis, no edema. NEUROLOGIC: Alert and oriented, no acute motor or sensory deficits, no focal weakness, cranial nerves grossly intact. SKIN: Some bruising over the upper portion of the shoulder and left lateral knee , and right forearm. No rash, no jaundice, no diaphoresis. Medical Decision & Procedures ER Provider Diagnostic Interpretation: Radiology results and stated below per my review and radiologist interpretation: L KNEE 3 VIEWS HISTORY: 81 years-old Male left knee pain s/p fall acute left knee pain status post fall COMPARISON: None available TECHNIQUE: 3 views of the left knee FINDINGS: The bones appear mildly demineralized. Tricompartmental osteoarthritis is noted, mild within the medial and lateral compartments and moderate within the patellofemoral joint. Small joint effusion. Linear 4 mm radiodensity projects over the suprapatellar tissues within the region of the distal quadriceps. Peripheral vascular disease. No acute fracture or subluxation identified. IMPRESSION: 1. Degenerative changes above without acute fracture or subluxation. 2. Small joint effusion. 3. Peripheral vascular disease. The above report was generated using voice recognition software. It may contain grammatical, syntax or spelling errors. Electronically signed by: Bruno Lugo M.D. 09/29/2017 12:10 PM R RIBS UNILATERAL WITH PA CHEST HISTORY: 81 years-old Male right lower rib pain s/p fall acute right lower rib pain status post fall COMPARISON: Chest and rib radiographs 03/25/2016, chest radiograph 04/17/2017 TECHNIQUE: PA view of the chest with 4 views of the right ribs FINDINGS: Cardiac silhouette is moderately enlarged. Coronary arterial stent graft is present. Left subclavian pacer/AICD appears unchanged. Atherosclerosis of the aorta. No pneumothorax, pleural effusion, focal airspace consolidation or overt pulmonary edema. Degenerative changes are seen within the shoulders and spine. There are remote healed fractures involving the posterior aspects of the right seventh and eighth ribs. No acute rib fracture identified. IMPRESSION: 1. No acute process of the chest. 2. No acute rib fracture or pneumothorax identified. 2. Remote healed fractures of the right posterior seventh and eighth ribs. The above report was generated using voice recognition software. It may contain grammatical, syntax or spelling errors. Electronically signed by: Bruno Lugo M.D. 09/29/2017 12:16 PM Medications Administered Medications (Trade) Dose Ordered Sig/[place] Route Start Time Stop Time Status Last Admin Dose Admin Tramadol HCl (Ultram Tab) 50 mg NOW STAT PO 09/29/17 11:29 09/29/17 11:32 DC 09/29/17 11:38 50 MG Tramadol HCl (Ultram Home Pack) 1 homepack UD ONCE PO 09/29/17 13:00 09/29/17 13:01 DC 09/29/17 13:38 1 [facility] ED Course 1119: The patient was evaluated in room C2. A complete history and physical exam was performed. 1129: Ultram 50 mg PO. 1245: I reevaluated the patient. He is feeling well. I discussed his results and discharge instructions and he verbalized complete understanding and agreement. 1300: Ultram 1 homepack PO. Medical Decision 81 yr old male arrives following mechanical fall yesterday resulting in injury right lower ribs and left knee with contusions to right forearm/wrist and right shoulder. No issues with ROM right arm. Hemarthrosis left knee with TTP though no imaging fractures. No new fractures ribs, old fractures known from previous fall. He is 24 hours out from fall and denies no headache, neck pain nor abdominal issues. While I offered ct imaging as standard in patient with fall on blood thinners, he is against having this done which seems reasonable especially given he has ppl checking on him as outpatient. We discussed the risk of head bleed as well as liver, kidney, retroperitoneal bleeding post fall. Has walker, will continue knee compression/elevation. Just to go Tramadol and will avoid Rx for now as he tolerates pain well. Reviewed symptoms requiring return. Head Trauma GCS Score: 15 Medication Reconcilliation Current Medication List: was personally reviewed by me Blood Pressure Screening Patient's blood pressure: Normal blood pressure Impression Primary Impression: Contusion of multiple sites Additional Impressions: Fall Knee hemarthrosis, left Rib contusion Scribe Attestation The scribe's documentation has been prepared under my direction and personally reviewed by me in its entirety. I confirm that the note above accurately reflects all work, treatment, procedures, and medical decision making performed by me. Departure Information Dispostion Home / Self-Care Referrals Bee Johnson, C.R.N.P. (PCP) Patient Instructions My [facility] Additional Instructions Rest and avoid strenuous exertion over next few days. Avoid further trauma falls as best you can. Tramadol may make you tired/weak so use with caution. Keep knee elevated and apply pressure as tolerated. Problem Qualifiers
[2017-09-29] MEDS ORDERED: TRAMADOL HCL 50 MG TAB PO STA (11:29)
--- NOTE | 2017-09-29 12:11 | DIAGNOSTIC IMAGING REPORT ---
L KNEE 3 VIEWS HISTORY: 81 years-old Male left knee pain s/p fall acute left knee pain status post fall COMPARISON: None available TECHNIQUE: 3 views of the left knee FINDINGS: The bones appear mildly demineralized. Tricompartmental osteoarthritis is noted, mild within the medial and lateral compartments and moderate within the patellofemoral joint. Small joint effusion. Linear 4 mm radiodensity projects over the suprapatellar tissues within the region of the distal quadriceps. Peripheral vascular disease. No acute fracture or subluxation identified. IMPRESSION: 1. Degenerative changes above without acute fracture or subluxation. 2. Small joint effusion. 3. Peripheral vascular disease. The above report was generated using voice recognition software. It may contain grammatical, syntax or spelling errors. Electronically signed by: Bruno Lugo M.D. 09/29/2017 12:10 PM Dictated Date/Time: 09/29/2017 12:08 PM
--- NOTE | 2017-09-29 12:17 | DIAGNOSTIC IMAGING REPORT ---
R RIBS UNILATERAL WITH PA CHEST HISTORY: 81 years-old Male right lower rib pain s/p fall acute right lower rib pain status post fall COMPARISON: Chest and rib radiographs 03/25/2016, chest radiograph 04/17/2017 TECHNIQUE: PA view of the chest with 4 views of the right ribs FINDINGS: Cardiac silhouette is moderately enlarged. Coronary arterial stent graft is present. Left subclavian pacer/AICD appears unchanged. Atherosclerosis of the aorta. No pneumothorax, pleural effusion, focal airspace consolidation or overt pulmonary edema. Degenerative changes are seen within the shoulders and spine. There are remote healed fractures involving the posterior aspects of the right seventh and eighth ribs. No acute rib fracture identified. IMPRESSION: 1. No acute process of the chest. 2. No acute rib fracture or pneumothorax identified. 2. Remote healed fractures of the right posterior seventh and eighth ribs. The above report was generated using voice recognition software. It may contain grammatical, syntax or spelling errors. Electronically signed by: Bruno Lugo M.D. 09/29/2017 12:16 PM Dictated Date/Time: 09/29/2017 12:13 PM
[2017-09-29] MEDS ORDERED: TRAMADOL HCL 50 MG HOME PACK PO ONE (13:00)
[2017-09-29 13:40] VITALS: BP 121/55; PULSE 62; TEMP 36.4; O2SAT 97
== END 2017-09-29 13:41 | disposition home or self-care (01) ==
LOC: C.EDB 10:25 → C.EDC 13:41
DX: S80.02XA Contusion of left knee, initial encounter (principal); S40.011A Contusion of right shoulder, initial encounter; S50.11XA Contusion of right forearm, initial encounter; S20.20XA Contusion of thorax, unspecified, initial encounter; S83.92XA Sprain of unspecified site of left knee, initial encounter; W18.39XA Other fall on same level, initial encounter; Y93.E9 Activity, other interior property and clothing maintenance; Y92.009 Unspecified place in unspecified non-institutional (private) residence as the place of occurrence of the external cause; I25.10 Atherosclerotic heart disease of native coronary artery without angina pectoris; I48.91 Unspecified atrial fibrillation; I10 Essential (primary) hypertension; I25.2 Old myocardial infarction; E78.5 Hyperlipidemia, unspecified; Z95.810 Presence of automatic (implantable) cardiac defibrillator; Z95.5 Presence of coronary angioplasty implant and graft; Z79.01 Long term (current) use of anticoagulants; Z79.82 Long term (current) use of aspirin; Z83.3 Family history of diabetes mellitus; Z82.49 Family history of ischemic heart disease and other diseases of the circulatory system; Z84.89 Family history of other specified conditions

== ENCOUNTER → 2017-10-30 | Day surgery (SDC) | payer OTHER ==
[2017-09-26 10:19] VITALS: BMI 26.0
[2017-10-11 09:10] VITALS: BMI 26.0
[2017-10-17 12:11] VITALS: Ht 177.8 cm; Wt 83.6 kg
[~2017-10-30] VITALS: Ht 177.8 cm; Wt 83.6 kg
[~2017-10-30] MED LIST changes: +500ML BSS 0.3ML EPI 1:1000PF IRRIG ONE; +ACETAMINOPHEN 325 MG TAB PO PRN; +AMVISC PLUS 0.8ML SYRINGE INT OCU ONE; +ATROPINE SULFATE 0.1 MG/ML 5ML SYR IV PRN; +BSS FLUSH ONE; +CYCLOPENTOLATE HCL 1% OP SOLN PER DROP CHARGE OPR SCH; +ENDOCOAT 0.85ML SYRINGE INT OCU ONE; +EpHEDrine SULFATE INJ 50 MG/ML AMP IV PRN; +EpINEphrine INJ 1MG/ML AMP 1 MG/ML AMP ONE; +LACTATED RINGER'S 1000ML 500 ML IV SCH; +LIDOCAINE 4% OP SOLN DROP CHARGE ONE; +LIDOCAINE 4% OP SOLN DROP CHARGE OPR SCH; +LIDOCAINE HCL 1% MPF 2 ML VIAL ONE; +MIDAZOLAM HCL 1 MG/ML 2ML VIAL ONE; +MIX: 4ML BSS 1ML EPI 1:1000 PF TOP ONE; +MOXIFLOXACIN OPH SOLN PER DROP CHARGE ONE; +MOXIFLOXACIN OPH SOLN PER DROP CHARGE OPR SCH; +PHENYLEPHRINE HCL 2.5% OP SOLN PER DROP CHARGE OPR SCH; +POVIDONE-IODINE OP SOLN 30 ML BTL ONE; +PROPARACAINE 0.5% OP SOLN PER DROP CHARGE OPR SCH; +SPIR25TA89 PO; +TOBRAMYCIN/DEXAMETHASONE OPH OINT PER APPLN CHARGE ONE; +TROPICAMIDE 1% OP SOLN PER DROP CHARGE OPR SCH
[2017-10-30] MEDS: TROPICAMIDE 1% OP SOLN PER DROP CHARGE OPR SCH ×3 (09:48→09:58)
[2017-10-30] MEDS: PHENYLEPHRINE HCL 2.5% OP SOLN PER DROP CHARGE OPR SCH ×3 (09:48→09:57)
[2017-10-30] MEDS: CYCLOPENTOLATE HCL 1% OP SOLN PER DROP CHARGE OPR SCH ×3 (09:49→09:59)
[2017-10-30] MEDS: MOXIFLOXACIN OPH SOLN PER DROP CHARGE OPR SCH ×3 (09:50→10:04)
--- NOTE | 2017-10-30 10:26 | History & Physical Bridge - SC ---
H&P Re-Evaluation Bridge Note: I have examined the patient, reviewed the History & Physical and in the interval since the performance of the History & Physical I have noted the following changes of clinical significance: No changes noted
--- NOTE | 2017-10-30 10:48 | [facility] Post Operative Brief Note ---
Immediate Operative Summary Operative Date Oct 30, 2017. Pre-Operative Diagnosis Right Eye Cataract Post-Operative Diagnosis Same Procedure(s) Performed Right Cataract Phacoemulsification With Intraocular Lens Implant Surgeon Dr. Dallas Snow Screed Operator Surgeon(s) None Estimated Blood Loss 0 Findings Consistent with Post-Op Diagnosis Specimens None Anesthesia Type MAC Complication(s) none Disposition Accompanied Pt To Recovery: no Disposition:
--- NOTE | 2017-10-30 10:49 | [facility] Operative Report ---
Operative Report Date of Service Oct 30, 2017. Operative Report DATE OF OPERATION: 10/30/17 PREOPERATIVE DIAGNOSIS: Senile nuclear cataract, right eye POSTOPERATIVE DIAGNOSIS: Senile nuclear cataract, right eye PROCEDURE PERFORMED: Phacoemulsification with intraocular lens implantation, right eye SURGEON: Dr. Brendon Snow ANESTHESIA: Topical with 1% intracameral lidocaine and monitored anesthesia care COMPLICATIONS: None DESCRIPTION OF PROCEDURE: After positively identifying the patient both verbally and by wristband in the preoperative area, the right eye was marked as the operative eye. The patient was then brought back to the operating room by the anesthesia and nursing staff where they were given a drop of Lidocaine and betadine into the operative eye. They were then sterilely prepped and draped in the standard fashion typical for ophthalmic surgery. Steri-strips were placed along the upper eyelids to keep the lashes back, and a lid speculum was placed into the operative eye. At this point, a documented time out was performed with members of the ophthalmology, nursing, and anesthesia staffs all agreeing upon the correct patient, correct location for surgery, correct procedure, and correct type and power of intraocular lens to be implanted. The microscope was then swung into position. First, a paracentesis wound was made using a sideport blade. Then, in sequence, 1% preservative-free lidocaine followed by Endocoat viscoelastic was injected into the anterior chamber. Next , the main incision was made with a keratome blade in triplanar fashion. A sharp cystotome was introduced into the eye and used to create a tear in the anterior capsule, which was directed into a continuous curvilinear capsulorrhexis using Utrata forceps. Hydrodissection was then performed with BSS on a flat-tip cannula. Next, the phacoemulsification handpiece was introduced into the eye and used to remove the nucleus in a [id number] fashion. This was done without complication and then the irrigation-aspiration handpiece was introduced into the eye and used to remove all remaining cortical and epinuclear material. Amvisc was then injected into the anterior chamber as well as into the capsular bag and using the lens injector system, an MX60 19.5 D lens, serial number [id number], and expiration date 04/2020 was injected into the capsular bag and rotated into the correct position. Next, the irrigation- aspiration handpiece was used to remove all remaining Amvisc. BSS was used to hydrate the main wound, and then BSS was injected into the paracentesis site to reach physiologic pressure and then the main wound was checked and found to be watertight. The patient was given drops of Vigamox and Tobradex ointment into the operative eye, and then the surrounding area was cleaned and dried. A clear plastic shield was placed over the eye and the patient was then sat up and taken from the operating room by the anesthesia staff having tolerated the procedure well and suffering no complications. DISPOSITION: The patient was returned to the recovery room in stable condition. I attest to the content of the Intraoperative Record and any orders documented therein. Any exceptions are noted below.
[2017-10-30 10:50] VITALS: TEMP 36.1
--- NOTE | 2017-10-30 10:50 | Discharge Instructions-SurgCtr ---
Discharge Instructions Date of Service Oct 30, 2017. Visit Reason for Visit: Cataract Right Eye Discharge Discharge Diagnosis / Problem: right cataract Discharge Goals Goal(s): Decrease discomfort, Improve function Activity Recommendations Activity Limitations: as noted below Anesthesia . Post Anesthesia Instructions: If you have had General Anesthesia or IV Sedation: * Do not drive today. * Resume driving when surgeon permits. * Do not make important decisions or sign legal documents today. * Call surgeon for: 1. Temperature elevations greater than 101 degrees F. 2. Uncontrollable pain. 3. Excessive bleeding. 4. Persistent nausea and vomiting. 5. Medication intolerance (nausea, vomiting or rash). * For nausea and vomiting use only clear liquids such as: tea, soda, bouillon until nausea subsides, then gradually increase diet as tolerated. * If you have any concerns or questions, call your surgeon's office. If physician is unavailable and it is an emergency, call 911 or go to the nearest emergency room. . Instructions / Follow-Up Instructions / Follow-Up ACTIVITY RECOMMENDATIONS: * Light activities. * You may walk outside, read, watch television. * You may notice redness on the white part of the eye and some blurry vision - this is normal. MEDICATIONS: Resume previous medications unless instructed otherwise by your surgeon. Start all eye drops at 1 pm today: * Eye drops (today): Prednisone - one drop in operative eye every 2 hours while awake Ofloxacin - one drop in operative eye every 2 hours while awake Prolensa - one drop in operative eye daily SPECIAL CARE INSTRUCTIONS: * Tape plastic shield over eye to sleep at night. Call your doctor at with any concerns or problems. FOLLOW UP VISIT: Follow-up with Dr Snow at [facility] as scheduled. Diet Recommendations Home Diet: no limitations Procedures Procedures Performed: Right Cataract Phacoemulsification With Intraocular Lens Implant Pending Studies Studies pending at discharge: no Medical Emergencies . Who to Call and When: Medical Emergencies: If at any time you feel your situation is an emergency, please call 911 immediately. . Non-Emergent Contact Non-Emergency issues call your: Surgeon . . "Provider Documentation" section prepared by Brendon Snow. .
--- NOTE | 2017-10-30 11:08 | Anesthesia Progress Nt - [facility] ---
Anesthesia Post Op Note Date & Time Oct 30, 2017 at 11:08 Vital Signs Pain Intensity: 0 Vital Signs Past 12 Hours Date Time Temp Pulse Resp B/P (MAP) Pulse Ox O2 Delivery O2 Flow Rate FiO2 10/30/17 10:50 36.1 59 12 117/72 (87) 98 Room Air 10/30/17 09:38 36.3 64 18 122/73 (89) 98 Room Air Notes Mental Status: alert / awake / arousable, participated in evaluation Pt Amnestic to Procedure: Yes Nausea / Vomiting: adequately controlled Pain: adequately controlled Airway Patency, RR, SpO2: stable & adequate BP & HR: stable & adequate Hydration State: stable & adequate Anesthetic Complications: no major complications apparent
[2017-10-30 11:12] VITALS: BP 114/60; PULSE 60; O2SAT 100
== END | disposition home or self-care (01) ==
LOC: X.SURG 09:16
PROVIDERS: ATTEND Ophthalmology
DX: H25.11 Age-related nuclear cataract, right eye (principal); I10 Essential (primary) hypertension; E11.9 Type 2 diabetes mellitus without complications; E78.00 Pure hypercholesterolemia, unspecified; I25.2 Old myocardial infarction; G47.33 Obstructive sleep apnea (adult) (pediatric); F41.9 Anxiety disorder, unspecified; Z95.0 Presence of cardiac pacemaker; Z95.5 Presence of coronary angioplasty implant and graft; Z79.01 Long term (current) use of anticoagulants; M19.90 Unspecified osteoarthritis, unspecified site; K21.9 Gastro-esophageal reflux disease without esophagitis; N40.0 Benign prostatic hyperplasia without lower urinary tract symptoms; Z79.82 Long term (current) use of aspirin; Z98.42 Cataract extraction status, left eye; I48.91 Unspecified atrial fibrillation

== ENCOUNTER → 2017-11-28 | Outpatient (CLI) | payer OTHER ==
[~2017-11-28] MED LIST changes: -500ML BSS 0.3ML EPI 1:1000PF IRRIG ONE; -ACETAMINOPHEN 325 MG TAB PO PRN; -AMVISC PLUS 0.8ML SYRINGE INT OCU ONE; -ATROPINE SULFATE 0.1 MG/ML 5ML SYR IV PRN; -BSS FLUSH ONE; -CYCLOPENTOLATE HCL 1% OP SOLN PER DROP CHARGE OPR SCH; -ENDOCOAT 0.85ML SYRINGE INT OCU ONE; -EpHEDrine SULFATE INJ 50 MG/ML AMP IV PRN; -EpINEphrine INJ 1MG/ML AMP 1 MG/ML AMP ONE; -LACTATED RINGER'S 1000ML 500 ML IV SCH; -LIDOCAINE 4% OP SOLN DROP CHARGE ONE; -LIDOCAINE 4% OP SOLN DROP CHARGE OPR SCH; -LIDOCAINE HCL 1% MPF 2 ML VIAL ONE; -MIDAZOLAM HCL 1 MG/ML 2ML VIAL ONE; -MIX: 4ML BSS 1ML EPI 1:1000 PF TOP ONE; -MOXIFLOXACIN OPH SOLN PER DROP CHARGE ONE; -MOXIFLOXACIN OPH SOLN PER DROP CHARGE OPR SCH; -PHENYLEPHRINE HCL 2.5% OP SOLN PER DROP CHARGE OPR SCH; -POVIDONE-IODINE OP SOLN 30 ML BTL ONE; -PROPARACAINE 0.5% OP SOLN PER DROP CHARGE OPR SCH; -TOBRAMYCIN/DEXAMETHASONE OPH OINT PER APPLN CHARGE ONE; -TROPICAMIDE 1% OP SOLN PER DROP CHARGE OPR SCH
--- NOTE | 2017-11-28 16:22 | DIAGNOSTIC IMAGING REPORT ---
L VENOUS DOPP LOWER EXT UNILAT CLINICAL HISTORY: M79.606 Pain, lower [id number] Swelling of left lower extre pain. Edema. TECHNIQUE: Venous Doppler COMPARISON STUDY: None FINDINGS: Normal study. No evidence for deep venous thrombosis. Soft tissue edema of the calf. IMPRESSION: 1. No evidence for deep venous thrombosis. 2. Soft tissue edema of the calf. The above report was generated using voice recognition software. It may contain grammatical, syntax or spelling errors. Electronically signed by: Amol Crain M.D. 11/28/2017 4:20 PM Dictated Date/Time: 11/28/2017 4:20 PM
== END | disposition home or self-care (01) ==
LOC: C.ULTR 15:35
PROVIDERS: ATTEND Internal Medicine
DX: M79.606 Pain in leg, unspecified (principal); M79.89 Other specified soft tissue disorders

== ENCOUNTER → 2017-12-10 | Outpatient (CLI) | payer OTHER ==
[2017-12-10 15:30] LABS: ALBUMIN 3.7 gm/dl (3.4-5.0); ALT/SGPT 20 U/L (12-78); AST/SGOT 14 U/L (15-37); BLOOD UREA NITROGEN 53 mg/dl (7-18); CALCIUM 9.1 mg/dl (8.5-10.1); CARBON DIOXIDE 20 mmol/L (21-32); CREATININE 2.11 mg/dl (0.60-1.40); GLUCOSE 130 mg/dl (70-99); POTASSIUM 5.3 mmol/L (3.5-5.1); SODIUM 140 mmol/L (136-145)
[2017-12-10 15:47] LABS: ALKALINE PHOSPHATASE 54 U/L (45-117); CHOLESTEROL 133 mg/dl (0-200); LDL CHOLESTEROL CALCULATED 62 mg/dl
[2017-12-11 05:39] LABS: HEMOGLOBIN A1C 7.6 % (4.5-5.6)
== END | disposition home or self-care (01) ==
LOC: C.LABBFT 07:41
PROVIDERS: ATTEND Nurse Practitioner
DX: E11.29 Type 2 diabetes mellitus with other diabetic kidney complication (principal)

== ENCOUNTER → 2017-12-11 | Outpatient (CLI) | payer OTHER ==
[2017-12-11 13:07] LABS: BLOOD UREA NITROGEN 55 mg/dl (7-18); CALCIUM 8.8 mg/dl (8.5-10.1); CARBON DIOXIDE 22 mmol/L (21-32); CREATININE 2.33 mg/dl (0.60-1.40); GLUCOSE 150 mg/dl (70-99); POTASSIUM 4.6 mmol/L (3.5-5.1); SODIUM 137 mmol/L (136-145)
== END | disposition home or self-care (01) ==
LOC: C.LABBFT 09:42
PROVIDERS: ATTEND Nurse Practitioner
DX: E87.5 Hyperkalemia (principal)

== ENCOUNTER → 2018-04-02 | Outpatient (CLI) | payer OTHER ==
[~2018-04-02] MED LIST changes: +SPIR25TA5 PO; -SPIR25TA89 PO
== END | disposition home or self-care (01) ==
LOC: C.LABSPEC 07:57
PROVIDERS: ATTEND Nurse Practitioner
DX: S81.802A Unspecified open wound, left lower leg, initial encounter (principal); X58.XXXA Exposure to other specified factors, initial encounter